=== PATIENT | male | born 1930 | race Caucasian/White ===

== ENCOUNTER 2016-06-25 13:47 | Emergency (ER) | payer OTHER ==
[2016-06-25 14:13] VITALS: RESP 20; TEMP 96.9
[2016-06-25] MEDS ORDERED: MECLIZINE 25 MG CHEWABLE TABLET PO ONE (14:15)
[2016-06-25] MEDS ORDERED: Sodium Chloride 0.9% 1,000 ML PRIMARY IV ONE (14:15)
[2016-06-25] MEDS ORDERED: NORMAL SALINE 10 ML SYRINGE FLUSH IVP PRN (14:15)
--- NOTE | 2016-06-25 14:22 | EKG ---
[address] [address] Measurements Intervals [place] Rate: 84 P: 55 TX: 202 QRS: -71 QRSD: 155 T: 46 QT: 422 QTc: 462 Interpretive Statements SINUS RHYTHM RIGHT BUNDLE BRANCH BLOCK LEFT ANTERIOR FASICULAR BLOCK Compared to ECG 03/02/2013 07:43:58 No significant changes Electronically Signed On 06-25-16 15:35:55 MST by Virgil Pennington [id number]
[2016-06-25 14:49] LABS: BILIRUBIN,TOTAL 1.6 mg/dL (0.3-1.2); BUN/CREATININE RATIO 11.42 (6-20); CALCIUM 9.4 mg/dL (8.7-10.7); CREATININE 0.7 mg/dL (0.70-1.50); POTASSIUM 4.4 meq/L (3.8-5.2); TOTAL PROTEIN 8.2 g/dL (6.1-8.0)
[2016-06-25 14:52] LABS: BASOPHILS # (AUTO) 0.01 10*3/UL; BASOPHILS % (AUTO) 0.2 % (0-1); EOSINOPHILS % (AUTO) 0.3 % (0-8); HEMOGLOBIN 14.1 g/dL (14.0-18.0); IMM GRAN % (AUTO) 0.5 % (0-5); IMM GRAN# (AUTO) 0.03 10*3/UL; LYMPHOCYTES # (AUTO) 1.37 10*3/uL; LYMPHOCYTES % (AUTO) 23.3 % (10-50); MEAN CORPUSCULAR HEMOGLOBIN 30.7 PG (27-31); MEAN CORPUSCULAR HGB CONC 33.6 g/dL (33-37); MEAN PLATELET VOLUME 11.4 FL (7.4-12.2); MONOCYTES # (AUTO) 0.86 10*3/UL (0.3-0.8); MONOCYTES % (AUTO) 14.6 % (5-15); NEUTROPHILS % (AUTO) 61.1 % (50-80); RDW COEFFICIENT OF VARIATION 15.2 % (11.5-14.5); RED BLOOD COUNT 4.59 10^6/uL (4.70-6.10); WHITE BLOOD COUNT 5.89 10^3/uL (4.8-10.8)
[2016-06-25 15:06] LABS: PLATELET MORPHOLOGY COMMENT NORMAL MORPHOLOGY (NORM)
--- NOTE | 2016-06-25 15:23 | DI ---
History: Patient fell. 2 view left shoulder. Findings: There is no evidence of dislocation. The scapula appears intact. Ribs appear intact. The ac romioclavicular junction shows mild degenerative change. There is advanced narrowing of the left edison ral head at the glenohumeral junction with bone on bone phenomena and some osteophyte formation noted both along the glenoid process and the humeral margin. Impression: MIld degenerative change at the left acromioclavicular junction. Advanced degenerative change at the glenohumeral junction No fracture or dislocation observed
--- NOTE | 2016-06-25 15:41 | DI ---
History: Patient fell. Evaluate for intracranial process. Procedure: Highly collimated axial images the brain were obtained from skull base to vertex. Findings: Moderately advanced atrophy, age-appropriate observed. No intra-nor extra-axial fluid or bl ood collections are identified orbits are unremarkable. There is no evidence of fracture. No shift of midline structures. Calvaria is intact. Orbits and finding collimated images are unremarkable. No evidence of mass or hem orrhage. Impression: Moderate age-appropriate atrophy. No evidence of acute hemorrhage or focal abnormality id entified
--- NOTE | 2016-06-25 15:51 | PDOC ---
Dizziness HPI - General Chief Complaint: Neurological Complaints Stated Complaint: dizziness Date Seen by Provider: 06/25/16 Time Seen by Provider: 15:45 Source: POSITIVE: Patient, Other (Daughter) Exam Limitations: POSITIVE: No limitations Nurse's Notes Reviewed & Considered: Yes - History of Present Illness Initial Comments: The patient is an 86-year-old male, who is brought to the emergency room by his daughter. Patient states that for the past 24 hours, approximately, he has had "dizziness". He states his dizziness is worse when he sits up or lies down. He apparently stumbled and fell yesterday and sustained a contusion to the posterior aspect of his left shoulder. His daughter lives nearby and checks on the patient frequently. The patient lives alone. Patient denies any chest pain. No headaches. No focal sensory or motor symptoms. No visual changes or changes in auditory acuity. Patient is hard of hearing and wears hearing aids. He denies recent head trauma. History of hypertension. His daughter states that she is concerned that the patient might not be taking his medications as directed and that he might be confusing the times at which he should be taking them. Body Location Affected: REPORTS: Other (Dizziness as above) Timing: REPORTS: Abrupt, Improved Duration: <24 hours (Approximately 24 hours) Severity: Moderate Persistent/Worse since (date): 06/24/16 Persistent/Worse since (time): 14:00 Context: REPORTS: Rest Quality: REPORTS: Other (Patient denies any pain anywhere) Associated Symptoms: REPORTS: Movement Sense - Vague, With Position Change. DENIES: Hearing Loss, Ringing in Ear(s), Roaring in Ear(s), Ear Pain, Nausea, Vomiting, Sense of Spinning, Sense of Falling, Movement Sense - Distinct, Headache, Weakness, Numbness, Diaphoresis, Light Headedness, Fainting, Near Fainting, While Sitting, While Standing, While Supine, Sense of Confusion, Other Current Ability to Walk/Stand: REPORTS: Walks w/o Assistance (But gait chronically unsteady) Usual Ability to Walk/Stand: REPORTS: Walks w/o Assistance (But gait chronically unsteady) Aggrevated by: REPORTS: Nothing Similar Symptoms Previously: No Recently seen/treated/hospitalized: No Any Prior Injuries Related to Current Complaint?: No - Patient Home Medications Home Medications: Home Medications Aspirin 81 mg PO DAILY #30 05/03/10 Multivitamins W-Minerals/Lut [Centrum Silver Tablet] 1 each PO DAILY #30 Levothyroxine Sodium 1 tab ORAL QD #90 tab 08/01/15 Amlodipine Besylate 1 tab PO QD #90 tab 08/22/15 Lisinopril 20 mg PO BID #180 tab 08/22/15 Potassium Chloride 1 tab PO QD #90 tab 08/22/15 Pravastatin Sodium [Pravachol Tab] 1 tab PO QHS #90 tab 08/22/15 Tolterodine Tartrate [Detrol] 1 mg PO BID #180 tab 08/22/15 Hydrocodone/Acetaminophen [Hydrocodon-Acetaminophen 5-325] 1 each PO BID #60 tab 06/15/16 - Patient Allergies Allergies/Adverse Reactions: Allergies Allergy/AdvReac Type Severity Reaction Status Date / Time No Known Allergies Allergy Verified 06/25/16 14:02 Past Medical History - heen HEENT History: Hard of Hearing Additional HEENT History: hearing aid right ear Cardiovascular History: Hypertension, Hyperlipidemia Respiratory History: Denies History Gastrointestinal History: Denies History Genitourinary History: Denies History Endocrine History: Hypothyroidism Musculoskeletal History: Back Pain Additional Musculoskeletal History: lumbar spine surgery Neurological History: Denies History Blood Disorders: Denies History Psychiatric History: Denies History Male Reproductive History: Denies History Cancer History: Denies History In Past Year Been Physically Harmed or Verbally Threatened: No History of MDRO: Unknown Tobacco Use: Never Smoker Alcohol Use: None Substance Use Type: None Previous Surgical History: Yes Type / Date of Surgery: back Significant Family History: No pertinent family hx Past Medical History Reviewed: Reviewed - No Changes ROS - Limitations ROS Limitations: No Limitations Constitution: REPORTS: Denies Symptoms Cardiovascular: REPORTS: Denies Cardiac Symptoms Respiratory: REPORTS: Denies Resp Symptoms Neurological: REPORTS: Denies Neuro Symptoms Gastrointestinal: REPORTS: Denies GI Symptoms Endocrine: REPORTS: Denies Symptoms Musculoskeletal: REPORTS: Denies MS Symptoms Genitourinary: REPORTS: Denies Symptoms Eyes: REPORTS: Denies Symptoms ENT: REPORTS: Denies Symptoms Skin: REPORTS: Denies Skin Symptoms Lympathic: REPORTS: Denies Lympathic Symptoms Immunologic: POSITIVE: Denies Symptoms Psychiatric: POSITIVE: Denies Psych Symptoms Dizziness PE - General Appearance General Appearance: POSITIVE: No Acute Distress, Alert - HEENT HEENT: POSITIVE: Head Inspection Nml, Eyes Inspection Nml, Ears Inspection Nml, Nose Inspection Nml, Oral/Dental Inspect. Nml, Pharynx Inspect. Nml, PERRL, EOMI , Other (No abnormal nystagmus) - Pupil Size Pupil Size: 4 mm: Bilateral (PERRLA) - Neck Neck: POSITIVE: Supple - Respiratory Respiratory: POSITIVE: No Respiratory Distress, Breath Sounds Normal - Cardiovascular Cardiovascular: POSITIVE: Regular Rate & Rhythm, No Murmur, No Gallop, Heart Sounds Normal Peripheral Pulses: Radial (R): 2+, Radial (L): 2+ - Abdomen Abdomen: Soft: (All Quadrants), Normal Bowel Sounds: (All Quadrants), Denies Tenderness: (All Quadrants), No Splenomegaly: (All Quadrants), No Hepatomegaly: (All Quadrants), No Guarding: (All Quadrants), No Rebound: (All Quadrants), No Palpable Pulse: (All Quadrants), No Palpabale Mass: (All Quadrants), No Distention: (All Quadrants), No Rigidity: (All Quadrants) - Skin Skin: POSITIVE: Intact, Normal For Race, Warm, Dry, No Rash - Extremities Extremity: Non-Tender: (All Extremities), Normal ROM: (All Extremities), Normal Inspection: (All Extremities) - Neuro/Psych Neuro/Psych: POSITIVE: Alert, Affect Appropriate, Mood Appropriate, Normal Speech, Normal Cognition Cranial Nerves: POSITIVE: Normal As Tested, No Evidence of Acute CVA Cerebellar: POSITIVE: Normal As Tested Sensorimotor: POSITIVE: No Motor Deficits, No Sensory Deficits, Reflexes Normal Reflexes: Patellar (L): 2+, Radial (R): 2+ Dizziness Progress - Results Reviewed by me Xrays/CTs/US Reviewed by me: Yes Discussed with Radiologist: Yes Radiology Findings: CT scan abdomen and pelvis without contrast normal except for some age-related loss of volume. X-ray left shoulder normal except for some degenerative changes. Lab Results Reviewed: Yes Lab Results:: Laboratory Results 06/25/16 Range/Units 14:30 WBC 5.89 (4.8-10.8) 10^3/uL RBC 4.59 L (4.70-6.10) 10^6/uL Hgb 14.1 (14.0-18.0) g/dL Hct 42.0 (42.0-52.0) % MCV 91.5 H (80-90) FL MCH 30.7 (27-31) PG MCHC 33.6 (33-37) g/dL RDW Std Deviation 49.3 (39-50) fL RDW Coeff of Bonny 15.2 H (11.5-14.5) % Plt Count 166 (140-350) 10*3/uL MPV 11.4 (7.4-12.2) FL Immature Gran % (Auto) 0.5 (0-5) % Neut % (Auto) 61.1 (50-80) % Lymph % (Auto) 23.3 (10-50) % [place] % (Auto) 14.6 (5-15) % Eos % (Auto) 0.3 (0-8) % Baso % (Auto) 0.2 (0-1) % Immature Gran # (Auto) 0.03 10*3/UL Neut # (Auto) 3.60 10*3/UL Lymph # (Auto) 1.37 10*3/uL [place] # (Auto) 0.86 H (0.3-0.8) 10*3/UL Eos # (Auto) 0.02 10*3/UL Baso # (Auto) 0.01 10*3/UL WBC Morphology Comment Normal morphology (NORM) Plt Morphology Comment Normal morphology (NORM) RBC Morph Comment Normal morphology (NORM) Sodium 138 (135-145) meq/L Potassium 4.4 (3.8-5.2) meq/L Chloride 101 (98-112) meq/L Carbon Dioxide 23 (23-33) meq/L Anion Gap 14 (5-20) BUN 8 (7-22) mg/dL Creatinine 0.7 (0.70-1.50) mg/dL Estimated GFR (>60 ml/min/1.73m(2)) BUN/Creatinine Ratio 11.42 (6-20) Glucose 89 (78-110) mg/dL Calculated Osmolality 282.0 (267-292) mOsm/kg Calcium 9.4 (8.7-10.7) mg/dL Total Bilirubin 1.6 H (0.3-1.2) mg/dL AST 32 (21-57) IU/L ALT 36 (21-72) IU/L Alkaline Phosphatase 60 (38-126) IU/L Total Protein 8.2 H (6.1-8.0) g/dL Albumin 4.9 H (3.5-4.8) g/dL Globulin 3.3 (2.50-4.10) g/dL Albumin/Globulin Ratio 1.40 (1.3-2.0) mg/g EKG Interpreted/Reviewed By Me:: Yes (normal sinus rhythm; right bundle-branch block with left anterior fascicula) EKG Interpretation:: POSITIVE: Normal Sinus Rhythm, Normal Rate, Normal ST/T, Abnormal EKG. NEGATIVE: Normal Intervals (Right bundle-branch block with left anterior fascicular block), Normal [place], Normal QRS (Right bundle-branch block with left anterior fascicular block) - Patient's Progress Pain Medication Addressed: POSITIVE: Not Applicable School/Work Release Addressed: POSITIVE: Not Applicable Re-Examine Time:: 15:40 Re-Examine Comment: Patient states he feels much better on discharge. Patient discharged home. Daughter will stay with him for the next few days. Recommended that daughter administer patient's medications. Status: POSITIVE: Improved, Re-Examined - Consult Counseled: POSITIVE: Patient, Family, RE: Lab Results, RE: Radiology Results, RE : DX, RE: Need for F/U Patient Care Time - Estimated PCT Patient Care Time (In Minutes): 50 Vital Signs - Recent Vital Signs Vital Signs: Vital Signs (Last 8 hours) Temp Pulse Pulse Pulse Pulse Resp BP 06/25/16 14:15 85 100 102 H 06/25/16 13:49 96.9 F 83 20 171/102 BP BP BP Pulse Ox 06/25/16 14:15 171/102 171/106 180/98 06/25/16 13:49 99 - VS Reviewed Vital Signs Reviewed: Yes Discharge Clinical Impression: Dizziness Discharge Disposition: Discharged to Home Condition: Stable Patient Instructions Given at Discharge: Dizziness (ED) Additional Instructions: Your blood tests are all normal. CAT scan of your head shows age-related changes but no evidence of stroke or bleeding. Electrocardiogram shows a regular rhythm. Dizziness can be caused by many things; your description of a sensation of movement when you change position is compatible with vertigo, which I believe in your case is a benign condition. This normally resolves after a short period of time. Your daughter will he staying with you for the next few days. I recommend that your daughter administers your medication so that you do not confuse the timing or dosage of your medicines. Follow-up with your primary care provider. Return here anytime if condition worsens in any way. Follow Up With: MOO HERNANDEZ [Primary Care Provider] - (Instructions as above. Return here anytime if condition worsens. Follow-up with your primary care provider.)
== END 2016-06-25 15:54 | disposition home or self-care (01) ==
LOC: ER 13:47
DX: R42 Dizziness and giddiness (principal); S40.012A Contusion of left shoulder, initial encounter; W18.39XA Other fall on same level, initial encounter
CPT/HCPCS: 70450; 73030; 80053; 85025; 93005; 93010; 99284; J7030

== ENCOUNTER → 2016-12-13 | Outpatient (CLI) | payer OTHER ==
[2016-12-13 10:55] LABS: BASOPHILS # (AUTO) 0.02 10*3/UL; BASOPHILS % (AUTO) 0.4 % (0-1); EOSINOPHILS # (AUTO) 0.04 10*3/UL; EOSINOPHILS % (AUTO) 0.7 % (0-8); HEMATOCRIT 40.9 % (42.0-52.0); LYMPHOCYTES # (AUTO) 1.53 10*3/uL; MEAN CORPUSCULAR HEMOGLOBIN 31.7 PG (27-31); MEAN CORPUSCULAR HGB CONC 34.2 g/dL (33-37); MEAN CORPUSCULAR VOLUME 92.5 FL (80-90); MEAN PLATELET VOLUME 11.6 FL (7.4-12.2); MONOCYTES # (AUTO) 0.93 10*3/UL (0.3-0.8); MONOCYTES % (AUTO) 17.1 % (5-15); NEUTROPHILS # (AUTO) 2.85 10*3/UL; NEUTROPHILS % (AUTO) 52.4 % (50-80); RED BLOOD COUNT 4.42 10^6/uL (4.70-6.10)
[2016-12-13 11:04] LABS: PLATELET MORPHOLOGY COMMENT NORMAL MORPHOLOGY (NORM); RBC MORPHOLOGY COMMENT NORMAL MORPHOLOGY (NORM); WBC MORPHOLOGY COMMENT NORMAL MORPHOLOGY (NORM)
[2016-12-13 11:17] LABS: BUN/CREATININE RATIO 15.55 (6-20); CALCIUM 9.5 mg/dL (8.7-10.7); CHOL/HDL RATIO 3.66 RATIO (0-4.0); HEMOGLOBIN A1C 4.88 % (4.2-6.0); LDL CHOLESTEROL,CALCULATED 45.6 mg/dL
== END ==
LOC: MOB LAB 09:24
PROVIDERS: ATTEND Family Medicine
DX: I10 Essential (primary) hypertension (principal); E03.9 Hypothyroidism, unspecified; E78.4 Other hyperlipidemia; F17.200 Nicotine dependence, unspecified, uncomplicated; Z79.899 Other long term (current) drug therapy
CPT/HCPCS: 36415; 80053; 80061; 83036; 84443; 85025; 99213

== ENCOUNTER 2018-10-17 08:38 | Observation (INO) ==
--- NOTE | 2018-10-17 08:55 | PDOC ---
Lower Extremity Problem HPI - General Chief Complaint: Lower Extremity Problem/Injury Stated Complaint: WEAKNESS Date Seen by Provider: 10/17/18 Time Seen by Provider: 08:45 Source: POSITIVE: Patient Exam Limitations: POSITIVE: Physical impairment (Patient is extremely hard of hearing) Nurse's Notes Reviewed & Considered: Yes - History of Present Illness Initial Comments: This is a well-developed, well-nourished, hard of hearing, 88-year-old male, who comes in because bilateral lower extremity weakness. Patient awoke this morning with weakness stating he was unable to move his legs. At this time he denies any headache, no sore throat, no chest pain, she he does have shortness of breath, denies any nausea or vomiting, he has chronic diarrhea, denies any hematuria or dysuria, no myalgias, no fever chills or sweats. Patient states he was normal when he went to bed last night when he awoke this morning he was having bilateral leg weakness. He denies any lateralizing signs. Body Location Affected: REPORTS: Lower Extremity (L), Lower Extremity (R) Timing: REPORTS: Unknown Duration: Unknown Severity: Moderate Recent Injury: REPORTS: No Context of Injury: DENIES: Fall, Twist, Direct Blow, Incision, Burn, Crush, Stab, Prolonged Pressure on Ext, Other Location at Time of Onset: REPORTS: Home Quality: DENIES: Aching, Burning, Cramping, Dullness, Fullness, "Pain", Sharpness, Stabbing, Throbbing, Tenderness, Itching, Pressure, Other Modifying Factors: REPORTS: Nothing Exacerbates Associated Symptoms: REPORTS: Shortness of Breath Recent Care Received: REPORTS: Denies Any Prior Injuries Related to Current Complaint?: No - Patient Home Medications Home Medications: Home Medications Aspirin 81 mg PO DAILY #30 05/03/10 pravastatin 40 mg tablet 40 mg PO QHS #30 tab 12/27/17 lisinopril 20 mg tablet 20 mg PO BID #180 tab 01/13/18 tolterodine 1 mg tablet 1 mg PO BID #60 tab 07/07/18 hydrocodone 5 mg-acetaminophen 325 mg tablet 1 tab PO BID PRN #60 tab 08/08/18 levothyroxine 125 mcg tablet 125 mcg PO QD #90 tab 09/17/18 amlodipine 5 mg tablet 5 mg PO QD #90 tab 10/14/18 potassium chloride ER 8 mEq tablet,extended release 8 meq PO QD #90 tab 10/14/18 - Patient Allergies Allergies/Adverse Reactions: Allergies Allergy/AdvReac Type Severity Reaction Status Date / Time No Known Allergies Allergy Verified 10/17/18 08:46 Past Medical History - heen HEENT History: Hard of Hearing Additional HEENT History: hearing aid right ear Cardiovascular History: Hypertension, Hyperlipidemia Respiratory History: Denies History Gastrointestinal History: Denies History Genitourinary History: Denies History Endocrine History: Hypothyroidism Musculoskeletal History: Back Pain Additional Musculoskeletal History: lumbar spine surgery Neurological History: Denies History Blood Disorders: Denies History Psychiatric History: Denies History Cancer History: Denies History History of MDRO: Unknown Alcohol Use: None In the Past 12 Months, Have Used or Abuse Any Substance: None Previous Surgical History: Yes Type / Date of Surgery: back Significant Family History: No pertinent family hx ROS - Limitations ROS Limitations: Physical Impairment (Patient is extremely hard of hearing) Constitution: REPORTS: Denies Symptoms Cardiovascular: REPORTS: Denies Cardiac Symptoms Respiratory: REPORTS: Shortness Of Breath Neurological: REPORTS: Weakness (Bilateral lower extremities) Gastrointestinal: REPORTS: Denies GI Symptoms Endocrine: REPORTS: Denies Symptoms Musculoskeletal: REPORTS: Denies MS Symptoms Genitourinary: REPORTS: Denies Symptoms Eyes: REPORTS: Denies Symptoms ENT: REPORTS: Denies Symptoms Skin: REPORTS: Denies Skin Symptoms Lympathic: REPORTS: Denies Lympathic Symptoms Immunologic: POSITIVE: Denies Symptoms Psychiatric: POSITIVE: Denies Psych Symptoms Lower Ext Problem Exam - General Appearance General Appearance: POSITIVE: Alert, Cooperative, No Acute Distress, No Evidence of Trauma - Extremities Lower Extremity: POSITIVE: Normal Inspection, Non-Tender, Swelling (+3 edema in his ankles and feet) Joint Exam: POSITIVE: Joints Normal, Unable to Bear Weight (Secondary to weakness) Vascular: POSITIVE: No Vascular Compromise, Full Pulses, Equal Pulses - Neuro / Psych Neuro/Psych: POSITIVE: Sensation Normal, Motor Normal, Oriented to Person, Oriented to Place, Oriented to Time, lab assistant Normal as Tested, Mood Appropriate, Affect Appropriate Reflexes: Patellar (R): 2+, Patellar (L): 2+, Radial (R): 3+, Radial (L): 3+ - Neck / Back / Pelvis Back / Neck: POSITIVE: Normal Inspection, Normal ROM Pelvis: Stable by compression - Skin Skin: POSITIVE: Normal Color, Warm, Dry, No Rash - HEENT HEENT: POSITIVE: Head Inspection Nml, Eyes Inspection Nml, Ears Inspection Nml, Nose Inspection Nml, Oral/Dental Inspect. Nml, Pharynx Inspect. Nml, PERRL, EOMI - Respiratory / CVS Respiratory / CVS: POSITIVE: No Respiratory Distress, Breath Sounds Normal, Regular Rate/Rhythm, Heart Sounds Normal Peripheral Pulses: Radial (L): 4+, Dorsalis-pedis (R): 4+, Dorsalis-pedis (L): 4+ - Abdomen Abdomen: Soft: (All Quadrants), Normal Bowel Sounds: (All Quadrants), Denies Tenderness: (All Quadrants), No Splenomegaly: (All Quadrants), No Hepatomegaly: (All Quadrants), No Guarding: (All Quadrants), No Rebound: (All Quadrants), No Palpable Pulse: (All Quadrants), No Palpabale Mass: (All Quadrants), No Distention: (All Quadrants), No Rigidity: (All Quadrants) Lower Ext Problem Progress - Results Reviewed by me Xrays/CTs/US Reviewed by me: Yes Discussed with Radiologist: Yes Lab Results Reviewed by Me: Yes CBC and BMP: 10/17/18 09:35 10/17/18 09:35 EKG Interpreted/Reviewed By Me:: Yes (sinus rhythm, 94 bpm, first-degree block.) EKG Interpretation:: POSITIVE: Normal Sinus Rhythm - Patient's Progress Pain Medication Addressed: POSITIVE: Not Applicable Re-Examine Time: 12:15 Status: POSITIVE: Improved MDM / ED Course: Patient was evaluated, an IV started, blood drawn and sent to the lab for studies, CT examination of his head as well as chest x-ray and EKG were obtained. Findings: EKG, per my interpretation, shows first-degree block with a rate of 94 beats a minute and no ST elevation. Chest x-ray shows left lower base atelectasis with no consolidations present. CT scan of his head shows no acute intracranial abnormalities. CBC shows white count platelets are normal with a hemoglobin of 13.8 and hematocrit of 40.2. Coag studies show PT of 13.1 and INR normal at 1.14. D-dimer is normal at 119. CMP shows a CO2 of 17, total bilirubin of 1.3, total protein of 8.1, albumin of 5.2, the remainder the panel is normal. TSH is normal at 0.946. Urinalysis is negative. Urine drug screen is positive for opiates, negative for all other substances tested. Blood alcohol is negative. Assessment: #1 anemia. #2 weakness bilateral lower extremities. Plan: Patient is being admitted by the hospitalist. We attempted to ambulate the patient here in the emergency room and required 3 people to help him stand erect. - Consult Consult (If Yes, Name of Consulting MD & Time Called): Yes (Dr. Vance 1217 hrs.) Consulting MD will see pt:: POSITIVE: [facility] Admit Counseled: POSITIVE: Patient, RE: Lab Results, RE: Radiology Results, RE: DX, RE: Need for F/U Patient Care Time - Estimated PCT Patient Care Time (In Minutes): 45 Vital Signs - VS Reviewed Vital Signs Reviewed: Yes Discharge Clinical Impression: Lower extremity weakness, Anemia Discharge Disposition: Admit to Inpatient Condition: Stable Date Decision to Admit to Inpatient: 10/17/18 Time Decision to Admit to Inpatient: 12:17
[2018-10-17] MEDS ORDERED: Sodium Chloride 0.9% 1,000 ML PRIMARY IV ONE (09:00)
--- NOTE | 2018-10-17 09:24 | EKG ---
[address] [place] [address] Measurements Intervals [place] Rate: 94 P: 41 IN: 210 QRS: -80 QRSD: 161 T: 35 QT: 390 QTc: 442 Interpretive Statements SINUS RHYTHM WITH FIRST DEGREE AV BLOCK RIGHT BUNDLE BRANCH BLOCK LEFT ANTERIOR FASCICULAR BLOCK POSSIBLE SEPTAL MYOCARDIAL INFARCTION Compared to ECG 06/25/2016 14:22:12 First degree AV block now prese Electronically Signed On 10-18-18 10:13:20 MDT by Virgil Pennington [id number]
[2018-10-17 09:36] LABS: BASOPHILS # (AUTO) 0.01 10*3/UL; BASOPHILS % (AUTO) 0.2 % (0-1); EOSINOPHILS # (AUTO) 0.01 10*3/UL; EOSINOPHILS % (AUTO) 0.2 % (0-8); Hematocrit [HCT] 40.2 % (42.0-52.0); Hemoglobin [HGB] 13.8 g/dL (14.0-18.0); LYMPHOCYTES # (AUTO) 0.82 10*3/uL; MEAN CORPUSCULAR HEMOGLOBIN 31.2 PG (27-31); MEAN CORPUSCULAR HGB CONC 34.3 g/dL (33-37); MONOCYTES # (AUTO) 0.77 10*3/UL (0.3-0.8); MONOCYTES % (AUTO) 12.6 % (5-15); NEUTROPHILS # (AUTO) 4.42 10*3/UL; NEUTROPHILS % (AUTO) 72.5 % (50-80); RED BLOOD COUNT 4.42 10^6/uL (4.70-6.10)
[2018-10-17 09:51] LABS: BLOOD UREA NITROGEN 17 mg/dL (7-22); BUN/CREATININE RATIO 21.25 (6-20); SERUM ALBUMIN 5.2 g/dL (3.5-4.8)
[2018-10-17 10:12] LABS: PLATELET MORPHOLOGY COMMENT NORMAL MORPHOLOGY (NORM); RBC MORPHOLOGY COMMENT NORMAL MORPHOLOGY (NORM); WBC MORPHOLOGY COMMENT NORMAL MORPHOLOGY (NORM)
--- NOTE | 2018-10-17 10:12 | DI ---
CT Head WO Contrast,10/17/2018 9:00 AM: Clinical History: Weakness Previous Exam: June 25, 2016 Findings: Multiple helically acquired CT images are obtained through the brain without contrast, and demonstrat e mild diffuse age-related volume loss. There is no mass, hemorrhage or midline shift. The paranasal sinuses are unremarkable. The intraorbital structures are also unremarkable. Impression: Diffuse age-related volume loss without acute intracranial pathology.
--- NOTE | 2018-10-17 10:17 | DI ---
XR CXR 1VW,10/17/2018 9:00 AM: Clinical History: Shortness of breath Previous Exam: None at this facility. Findings: A single frontal radiograph of the chest is obtained, and demonstrate subsegmental atelectasis in the lung base on the left. Degenerative changes are seen of the glenohumeral joints and the acromioclavicular joints. There is n o effusion. Impression: Subsegmental atelectasis in the left lung base.
[2018-10-17 11:37] LABS: BILIRUBIN,URINE NEGATIVE (NEG); CLARITY,URINE CLEAR (CLEAR); COLOR,URINE YELLOW (Y); GLUCOSE, URINE (UA) NEGATIVE (NEG); OCCULT BLOOD,URINE NEGATIVE (NEG); PROTEIN,URINE NEGATIVE (NEG); UROBILINOGEN,URINE 0.2 EU/dL (0.2)
[2018-10-17 11:38] LABS: URINE SAMPLE TYPE CLEAN CATCH URINE
[2018-10-17 11:39] LABS: URINE SPECIFIC GRAVITY - MAN 1.015
[2018-10-17 11:45] LABS: AMPHETAMINE SCREEN NEGATIVE (NEG); CANNABINOID SCREEN,URINE NEGATIVE (NEG); COCAINE SCREEN NEGATIVE (NEG); METHADONE URINE SCREEN NEGATIVE (NEG); METHAMPHETAMINES SCREEN,URINE NEGATIVE (NEG); OPIATE SCREEN,URINE POSITIVE (NEG)
--- NOTE | 2018-10-17 12:34 | PDOC ---
HPI - History of Present Illness History of Present Illness: This very nice 88-year-old gentleman brought to the ER for lower extremity weakness he was rehydrated in the ER labs are unremarkable but when they tried to walk and ambulate took about 3 people to have him walk he does use a walker. Past Medical History Medical History: Hypertension, hypothyroidism Tobacco Use: Unknown If Ever Smoked Do you dip or chew tobacco: Yes In the Past 12 Months, Have Used or Abuse Any of the Following Substance: None Medication / Allergies Home Medications: Home Medications Medication Instructions Recorded Confirmed Aspirin 81 mg PO DAILY #30 05/03/10 10/17/18 pravastatin 40 mg tablet 40 mg PO QHS #30 tab 12/27/17 10/17/18 lisinopril 20 mg tablet 20 mg PO BID #180 tab 01/13/18 10/17/18 tolterodine 1 mg tablet 1 mg PO BID #60 tab 07/07/18 10/17/18 hydrocodone 5 mg-acetaminophen 325 1 tab PO BID PRN #60 tab 08/08/18 10/17/18 mg tablet levothyroxine 125 mcg tablet 125 mcg PO QD #90 tab 09/17/18 10/17/18 amlodipine 5 mg tablet 5 mg PO QD #90 tab 10/14/18 10/17/18 potassium chloride ER 8 mEq 8 meq PO QD #90 tab 10/14/18 10/17/18 tablet,extended release Allergies/Adverse Reactions: Allergies Allergy/AdvReac Type Severity Reaction Status Date / Time No Known Allergies Allergy Verified 10/17/18 08:46 Review of Systems - Review of Systems All Systems: Reviewed & No Additional Complaints Except as Stated - Respiratory Respiratory: DENIES: Negative System Review, Cough, Sputum, Dyspnea At Rest, Dyspnea with Exertion, Pleuritic Pain, Hemoptysis, Wheezing, Other, See HPI - Cardiovascular Cardiovascular: DENIES: Negative System Review, Chest Pain, Edema, Syncope, Palpitations, Orthopnea, Paroxysmal Nocturnal Dyspnea, Other, See HPI - Gastrointestinal Gastrointestinal / Abdominal: DENIES: Negative System Review, Nausea, Vomiting, Diarrhea, Constipation, Abdominal Pain, Bloody Stool, Poor Appetite, Heartburn, Regurgitation, Bloating, Lactose Intolerance, Melena, Bright Red Blood per Rectum, Other, See HPI - Musculoskeletal Musculoskeletal: REPORTS: Other (Generalized weakness lower extremities) Exam - Vitals Vital Signs: Vital Signs Temperature 97.8 F Temperature Source Temporal Artery Scan Pulse Rate [Pulse Oximeter 94 Right] Respiratory Rate 16 Blood Pressure [Left Arm] 115/62 Pulse Ox 94 Oxygen Delivery Method Room Air Height 5 ft 5 in Weight 175 lb - General General Appearance: No Acute Distress, Cooperative - Eye Eye Exam: POSITIVE: Normal Appearance, PERRL, EOMI, No Scleral Icterus - Neck Neck Exam: Normal Inspection, Full ROM, No Tenderness, No Lymphadenopathy, No Thyromegaly, JVP is not Raised - Respiratory Respiratory Exam: POSITIVE: Clear to Auscultation - Bilaterally, Breathing Non Labored, Normal To Percussion, Normal to Percussion and Palpation - Cardiovascular Cardiovascular Exam: POSITIVE: RRR, No Murmur, No Clicks, No Gallops, No Rubs, PMI Non-Displaced - GI/Abdominal GI/Abdominal Exam: POSITIVE: Normal Bowel Sounds, Non Tender, Non Distended, Soft, No Masses, No Hepatomegaly, No Splenomegaly, No Organomegaly - Extremities Extremities Exam: POSITIVE: Normal Inspection, Full ROM, No Clubbing Present, No Edema Present, No Cyanosis Present Additional Extremities Exam Details: Left lower extremity weakness little bit more than the right side - Neurological Neurological Exam: POSITIVE: Alert, Oriented x 3, No Facial Droop, Speech Intact / Clear Results - Labs CBC and BMP: 10/17/18 09:35 10/17/18 09:35 Assessment and Plan - Patient Problems (1) Dehydration Current Visit: Yes Status: Acute Comment: IV fluids and 75 an hour Code(s): E86.0 - Dehydration (2) Lower extremity weakness Current Visit: Yes Status: Acute Comment: Nothing on CT scan I will order an MRI Code(s): R29.898 - Other symptoms and signs involving the musculoskeletal system (3) BPH (benign prostatic hyperplasia) Current Visit: No Status: Acute Onset Date: 10/19/11 Code(s): N40.0 - Benign prostatic hyperplasia without lower urinary tract symptoms (4) HTN (hypertension) Current Visit: No Status: Acute Onset Date: 10/19/11 Code(s): I10 - Essential (primary) hypertension
[2018-10-17] MEDS ORDERED: DOCUSATE 100 MG CAPSULE PO PRN (12:49)
[2018-10-17] MEDS ORDERED: LIDOCAINE W/ SODIUM BICARB 0.5 ML SYR SUBD PRN (12:49)
[2018-10-17] MEDS ORDERED: CALCIUM CARBONATE 500 MG (TUMS) CHEWABLE TABLET PO PRN (12:49)
[2018-10-17] MEDS ORDERED: ONDANSETRON 4 MG/2 ML VIAL IVP PRN (12:49)
[2018-10-17] MEDS ORDERED: ACETAMINOPHEN 325 MG TABLET PO PRN (12:49)
[2018-10-17] MEDS ORDERED: TOLTERODINE TARTRATE 1 MG PO SCH (12:49)
--- NOTE | 2018-10-17 15:42 | DI ---
MRI Brain WO Contrast,10/17/2018 12:49 PM: Clinical History: Weakness Previous Exam: None at this facility. Findings: Multiplanar MR images are obtained through the brain without contrast, and demonstrate diffuse age-re lated volume loss. There are multiple areas of increased FLAIR signal within the periventricular whit e matter. There is no abnormally restricted diffusion. There is fluid within the mastoid air cells bilaterally worse on the right than the left. The intraorbital structures are unremarkable. The paranasal sinuses are unremarkable. There is mild diffuse age-related volume loss. The cerebellopontine angles are unremarkable. The corpus callosum is unremarkable. The sella and parasellar region is unremarkable. There is no evidence of Chiari malformation. Diffuse degenerative changes of the upper cervical spine are seen. Impression: Diffuse age-related volume loss. No evidence of acute ischemia. Fluid within the mastoid air cells. Correlate clinically.
[2018-10-17] MEDS: LISINOPRIL 20 MG TABLET PO SCH ×2 (15:59→20:55)
[2018-10-17] MEDS: AmLODIPine Tab 5 MG TABLET PO SCH (15:59)
[2018-10-17] MEDS: Lactated Ringers 1,000 ML PRIMARY IV SCH (16:25)
[2018-10-17] MEDS: ASPIRIN EC 81 MG TABLET PO SCH (16:26)
[2018-10-17] MEDS ORDERED: Pravastatin Tab 40 MG TAB PO SCH (21:00)
[2018-10-18] MEDS: LEVOTHYROXINE 125 MCG TABLET PO SCH (04:41)
[2018-10-18] MEDS: Lactated Ringers 1,000 ML PRIMARY IV SCH (04:45)
[2018-10-18 05:45] LABS: BASOPHILS # (AUTO) 0.01 10*3/UL; BASOPHILS % (AUTO) 0.2 % (0-1); EOSINOPHILS # (AUTO) 0.02 10*3/UL; EOSINOPHILS % (AUTO) 0.4 % (0-8); Hematocrit [HCT] 36.5 % (42.0-52.0); Hemoglobin [HGB] 12.4 g/dL (14.0-18.0); LYMPHOCYTES # (AUTO) 1.31 10*3/uL; MEAN CORPUSCULAR HEMOGLOBIN 30.8 PG (27-31); MEAN CORPUSCULAR VOLUME 90.6 FL (80-90); MEAN PLATELET VOLUME 11.2 FL (7.4-12.2); MONOCYTES % (AUTO) 14.2 % (5-15); NEUTROPHILS # (AUTO) 3.43 10*3/UL; NEUTROPHILS % (AUTO) 60.8 % (50-80); RED BLOOD COUNT 4.03 10^6/uL (4.70-6.10)
[2018-10-18 06:03] LABS: BLOOD UREA NITROGEN 10 mg/dL (7-22); SERUM ALBUMIN 4.3 g/dL (3.5-4.8)
[2018-10-18 06:14] LABS: PLATELET MORPHOLOGY COMMENT NORMAL MORPHOLOGY (NORM); RBC MORPHOLOGY COMMENT NORMAL MORPHOLOGY (NORM); WBC MORPHOLOGY COMMENT NORMAL MORPHOLOGY (NORM)
[2018-10-18] MEDS: AmLODIPine Tab 5 MG TABLET PO SCH (09:27)
[2018-10-18] MEDS: LISINOPRIL 20 MG TABLET PO SCH ×2 (09:27→20:05)
[2018-10-18] MEDS: Tolterodine LA Cap 4 MG CAP PO SCH (09:27)
[2018-10-18] MEDS: ASPIRIN EC 81 MG TABLET PO SCH (09:27)
--- NOTE | 2018-10-18 11:53 | OT.PROG ---
Progress Note Progress Note: S: pt stated that he was doing okay and agreed to therapy. O: tx consisted of bed mobility from supine to EOB with MIN A, STS x5, functional ambulation with walker x10'. A: pt tolerated session well. pt needs verbal cues to bed positioning today. P: continue POC
--- NOTE | 2018-10-18 16:18 | PDOC(PROG) ---
Date of Service: 10/18/18 Time of Service: 16:13 Interval History: patient seen, evaluated earlier today. no chest pain, SOB, N/V. was eating cream o wheat for breakfast. D/W RN who stated patient needed max assist to sit upright. patient suffers from dementia, but stated to me that he has leg weakness and he feels like they "give out" on him. I reviewed lumbar MRI from 2010--severe spinal stenosis and disk bulges. Objective : Data - Labs CBC and BMP: 10/18/18 04:50 10/18/18 04:50 Objective : Exam - General General Appearance: No Acute Distress, Cooperative Additional General Exam Details: Vital Signs - Last Taken Temperature 97.9 F 10/18/18 13:00 Pulse Rate 102 H 10/18/18 13:00 Respiratory Rate 20 10/18/18 13:00 Blood Pressure 148/70 10/18/18 13:00 Pulse Ox 95 10/18/18 13:00 - Eye Eye Exam: No Scleral Icterus - ENT ENT Exam: Mucous Membranes Moist - Neck Neck Exam: JVP is not Raised - Respiratory Respiratory Exam: Clear to Auscultation - Bilaterally, Breathing Non Labored - Cardiovascular Cardiovascular Exam: RRR, No Murmur, No Clicks, No Gallops, No Rubs, No JVD - GI/Abdominal GI/Abdominal Exam: Normal Bowel Sounds, Non Tender, Non Distended, Soft - Extremities Extremities Exam: No Clubbing Present, No Edema Present, No Cyanosis Present - Back Back Exam: No CVA Tenderness Additional Back Exam Details: scar from prior back surgery noted. - Neurological Neurological Exam: Alert, No Facial Droop, Speech Intact / Clear, Moves All Extremities Equally Additional Neurological Exam Details: oriented to person, not to time or situation. Assessment and Plan - Patient Problems (1) Lower extremity weakness Current Visit: Yes Status: Acute Code(s): R29.898 - Other symptoms and signs involving the musculoskeletal system Qualifiers: Laterality: bilateral Qualified Code(s): R29.898 - Other symptoms and signs involving the musculoskeletal system (2) BPH (benign prostatic hyperplasia) Current Visit: No Status: Acute Onset Date: 10/19/11 Code(s): N40.0 - Benign prostatic hyperplasia without lower urinary tract symptoms (3) HTN (hypertension) Current Visit: No Status: Acute Onset Date: 10/19/11 Code(s): I10 - Essential (primary) hypertension Qualifiers: Hypertension type: unspecified Qualified Code(s): I10 - Essential (primary) hypertension (4) Dehydration Current Visit: Yes Status: Resolved Code(s): E86.0 - Dehydration (5) Dementia Current Visit: Yes Status: Acute Code(s): F03.90 - Unspecified dementia without behavioral disturbance Qualifiers: Dementia type: Alzheimer's disease Alzheimer's disease onset: late-onset Dementia behavioral disturbance: without behavioral disturbance Qualified Code(s): G30.1 - Alzheimer's disease with late onset; F02.80 - Dementia in other diseases classified elsewhere without behavioral disturbance - Assessment / Plan Additional Assessment/Plan Details: stop IV fluids I think the LE weakness is probably related to spinal stenosis, question disk bulges. can consider MRI, maybe back injection? very poor surgical candidate continue PT and OT eliminate narcotics if possible and simplify medications with dementia and current symptoms not safe to discharge home--very high risk to fall currently.
[2018-10-19] MEDS: LEVOTHYROXINE 125 MCG TABLET PO SCH (04:45)
[2018-10-19] MEDS: LISINOPRIL 20 MG TABLET PO SCH ×2 (08:54→20:17)
[2018-10-19] MEDS: Tolterodine LA Cap 4 MG CAP PO SCH (08:54)
[2018-10-19] MEDS: AmLODIPine Tab 5 MG TABLET PO SCH (08:54)
[2018-10-19] MEDS: ASPIRIN EC 81 MG TABLET PO SCH (08:54)
--- NOTE | 2018-10-19 10:45 | OT.PROG ---
Progress Note Progress Note: S: pt stated that he didnt like being forced to stay here. O: tx consisted of ADL task of toileting with x3 VCs to complete toilet hygiene. pt then completed functional transfer with walker and CGA for safety to sink were pt completed hand washing tasks with x2 VCs. pt transferred to chair with CGA for safety and use of walker. pt completed UE RTB exercises of biceps and chest pulls x10 each, LE clams x10, resisitive hamstring curls x10, seated marches and ankle pumps x10. A: pt tolerated session well. pt was unsteady on his feet during hand washing tasks. P: continua POC
--- NOTE | 2018-10-19 13:43 | PDOC(PROG) ---
Date of Service: 10/19/18 Time of Service: 13:38 Interval History: seen, evaluated earlier, discussed with RN no chest pain and no SOB no nausea or vomiting states his back is sore ambulating a bit better in room per RN. reportedly, patient's daughter hoping for half-way placement? Objective : Data - Labs CBC and BMP: 10/18/18 04:50 10/18/18 04:50 Objective : Exam - General General Appearance: No Acute Distress, Cooperative Additional General Exam Details: Vital Signs - Last Taken Temperature 97.5 F 10/19/18 10:56 Pulse Rate 84 10/19/18 10:56 Respiratory Rate 17 10/19/18 10:56 Blood Pressure 136/69 10/19/18 10:56 Pulse Ox 96 10/19/18 10:56 - ENT ENT Exam: Mucous Membranes Moist - Neck Neck Exam: JVP is not Raised - Respiratory Respiratory Exam: Clear to Auscultation - Bilaterally, Breathing Non Labored - Cardiovascular Cardiovascular Exam: RRR, No Murmur, No Clicks, No Gallops, No Rubs, No JVD - GI/Abdominal GI/Abdominal Exam: Normal Bowel Sounds, Non Tender, Non Distended, Soft - Extremities Extremities Exam: No Clubbing Present, No Edema Present, No Cyanosis Present - Neurological Neurological Exam: Alert, No Facial Droop, Speech Intact / Clear, Moves All Extremities Equally Additional Neurological Exam Details: alert to person, not to place, time or situation Assessment and Plan - Patient Problems (1) Lower extremity weakness Current Visit: Yes Status: Acute Code(s): R29.898 - Other symptoms and signs involving the musculoskeletal system Qualifiers: Laterality: bilateral Qualified Code(s): R29.898 - Other symptoms and signs involving the musculoskeletal system (2) BPH (benign prostatic hyperplasia) Current Visit: No Status: Acute Onset Date: 10/19/11 Code(s): N40.0 - Benign prostatic hyperplasia without lower urinary tract symptoms Qualifiers: Lower urinary tract symptom presence: unspecified whether lower urinary tract symptoms present Qualified Code(s): N40.0 - Benign prostatic hyperplasia without lower urinary tract symptoms (3) HTN (hypertension) Current Visit: No Status: Acute Onset Date: 10/19/11 Code(s): I10 - Essential (primary) hypertension Qualifiers: Hypertension type: unspecified Qualified Code(s): I10 - Essential (primary) hypertension (4) Dementia Current Visit: Yes Status: Acute Code(s): F03.90 - Unspecified dementia without behavioral disturbance Qualifiers: Dementia type: Alzheimer's disease Alzheimer's disease onset: late-onset Dementia behavioral disturbance: without behavioral disturbance Qualified Code(s): G30.1 - Alzheimer's disease with late onset; F02.80 - Dementia in other diseases classified elsewhere without behavioral disturbance - Assessment / Plan Additional Assessment/Plan Details: patient is quite demented and would not be safe to be at home without 24/7 care, at least in my opinion suspect spinal stenosis is causing leg weakness and ability to ambulate may likely deteriorate with time, not a surgical candidate with advanced dementia, age. will get case management involved. at this time, no safe discharge plan in place.
[2018-10-20] MEDS: LEVOTHYROXINE 125 MCG TABLET PO SCH (05:09)
[2018-10-20] MEDS: AmLODIPine Tab 5 MG TABLET PO SCH (08:37)
[2018-10-20] MEDS: ASPIRIN EC 81 MG TABLET PO SCH (08:37)
[2018-10-20] MEDS: LISINOPRIL 20 MG TABLET PO SCH ×2 (08:38→20:36)
[2018-10-20] MEDS: Tolterodine LA Cap 4 MG CAP PO SCH (08:38)
--- NOTE | 2018-10-20 10:57 | PTI REPORT ---
Thank you for the referral of Gianfranco Bear. He was seen on 10/17/18 for an inpatient evaluation secondary to weakness. SUBJECTIVE: The patient is an 88-year-old male who states he [place] here [place] town on [address]. He states he had to get up to go to the restroom and his legs wouldn't hold him up, and he fell. The patient states he was doing great yesterday and then this came very suddenly. PAST MEDICAL HISTORY: Past medical history can be found in the patient's medical record. OBJECTIVE FINDINGS: General observations: The patient was very anxious and apprehensive about getting up and getting out of bed. Pain: The patient complaints of no pain in his back or his knees. Range of motion: The patient demonstrates good range of motion in his upper and lower extremities. Bed mobility: The patient was able to come from supine to sit with minimal assist and tactile cueing. Transfers: The patient was able to come to a standing position with minimal assist of two. Ambulation: The patient was able to take 2-3 steps forward, but once he realized he was walking he became very anxious and wanted to get back to bed very quickly. ASSESSMENT: They are doing some further testing to see if they can find any causative factors for this current issue. He states he was doing great yesterday and then this came very suddenly. The therapist does think the patient possesses the ability to ambulate with a walker. The therapist thinks there is a lot of anxiety from his recent fall and maybe some other medical issue causing this trouble that they are going to look into. Problem List: Patient is a HIGH risk for falling at this point due to his impulsiveness, non predictable behavior, and anxiety Short-Term Goals: To be met by discharge from inpatient: Patient will be able to transfer from bed to stand independently. Patient will be able to ambulate 300 feet with least restrictive assistive device. Patient will demonstrate good balance. Long-Term Goals: To be met following discharge from inpatient: Patient will return home per prior level of function safely and independently. TREATMENT PLAN: Patient will be seen B.I.D during the week and one time per day over the weekend as an inpatient for lower extremity strengthening, transfers, and ambulatory activities. INITIAL TREATMENT: Treatment today consisted of the initial evaluation activities only. EVON
--- NOTE | 2018-10-20 11:52 | DI ---
MRI Lumbar Spine WO Contrast,10/20/2018 7:00 AM: Clinical History: Leg weakness and history of back surgery and spinal stenosis Previous Exam: July 03, 2010 Findings: Multiplanar MR images are obtained through the lumbar spine without contrast, and demonstrate mild le voscoliosis of the mid lumbar spine. Postsurgical changes are seen consistent with transpedicular fixation of L3-L5. There is also interbo dy fusion of L2/3, L3/4 and L4/5. There is loss of intervertebral disc height at multiple levels with broad-based disc bulges and facet hypertrophy. The spinal cord descends normally with normal course, caliber and a normal conus at the L1 level. There is a large right renal cyst measuring 6.1 cm in length. Individual intervertebral disc spaces. L1/2: There is disc desiccation, a broad-based disc bulge and annular fissuring combining with facet and ligamentum flavum hypertrophy to cause mild central canal stenosis with mild right and moderate l eft neuroforaminal narrowing. L2/3: There is a 4 mm of retrolisthesis of L2 on L3 and complete loss of intervertebral disc height w ith some facet and ligamentum flavum hypertrophy contributing to severe right, severe left neural for aminal narrowing, and severe central canal stenosis. L3/4: There is transpedicular fusion at this level and bilateral laminectomies causing decompression of the central canal. There is severe right and moderate left neural foraminal narrowing. L4/5: There is 2 mm of anterolisthesis of L4 on L5 with disc desiccation and annular fissuring. There is some facet hypertrophy. Bilateral laminectomies are noted. There is mild central canal stenosis w ith mild left and moderate right neuroforaminal narrowing. L5/S1: There is disc desiccation and a broad-based disc bulge with some facet and ligamentum flavum h ypertrophy contributing to mild bilateral neural foraminal narrowing. Impression: L1/2: There is disc desiccation, a broad-based disc bulge and annular fissuring combining with facet and ligamentum flavum hypertrophy to cause mild central canal stenosis with mild right and moderate l eft neuroforaminal narrowing. L2/3: There is a 4 mm of retrolisthesis of L2 on L3 and complete loss of intervertebral disc height w ith some facet and ligamentum flavum hypertrophy contributing to severe right, severe left neural for aminal narrowing, and severe central canal stenosis. L3/4: There is transpedicular fusion at this level and bilateral laminectomies causing decompression of the central canal. There is severe right and moderate left neural foraminal narrowing. L4/5: There is 2 mm of anterolisthesis of L4 on L5 with disc desiccation and annular fissuring. There is some facet hypertrophy. Bilateral laminectomies are noted. There is mild central canal stenosis w ith mild left and moderate right neuroforaminal narrowing. L5/S1: There is disc desiccation and a broad-based disc bulge with some facet and ligamentum flavum h ypertrophy contributing to mild bilateral neural foraminal narrowing.
--- NOTE | 2018-10-20 12:27 | PT.PROG ---
Progress Note Progress Note: S. Patient agreed to go to the therapy gym this morning. O. Patient ambulated 175 feet to the therapy gym then ambulated 70 feet to the wheelchair and was returned to his room where he was left with alarm and call light. A. Patient complained of cramping after ambulation, he would continue to benefit from skilled therapy to increase strength and safety at this time. P. Continue POC.
--- NOTE | 2018-10-20 13:32 | PDOC(PROG) ---
Date of Service: 10/20/18 Time of Service: 13:27 Interval History: Patient seen and evaluated earlier this morning. Spoke with stepdaughter, who is the patient's power of divorce attorney. She details that she cannot take care of the patient. She just had surgery herself, is nearing age 64, and is having significant difficulty picking the patient up and lifting him, and it sounds as if he falls frequently, he is not oriented and cannot make any medical decisions for himself. Other siblings are not involved in the patient's care at all. At this point, aside from jail facility, there is no safe discharge options. The patient has not shown aggressive or agitated behavior in the setting of his dementia. Objective : Data - Labs CBC and BMP: 10/18/18 04:50 10/18/18 04:50 - Imaging MRI Status: Report Reviewed by Me (Lumbar spine MRI scan shows neuroforaminal stenosis and central canal stenosis at multiple levels.) Objective : Exam - General General Appearance: No Acute Distress, Cooperative Additional General Exam Details: Vital Signs - Last Taken Temperature 97.3 F 10/20/18 11:09 Pulse Rate 76 10/20/18 11:09 Respiratory Rate 17 10/20/18 11:09 Blood Pressure 99/46 10/20/18 11:09 Pulse Ox 92 10/20/18 11:09 - Eye Eye Exam: No Scleral Icterus - ENT ENT Exam: Mucous Membranes Moist - Neck Neck Exam: JVP is not Raised - Respiratory Respiratory Exam: Clear to Auscultation - Bilaterally, Breathing Non Labored - Cardiovascular Cardiovascular Exam: RRR, No Murmur, No Clicks, No Gallops, No Rubs, No JVD - GI/Abdominal GI/Abdominal Exam: Normal Bowel Sounds, Non Tender, Non Distended, Soft - Extremities Extremities Exam: No Clubbing Present, No Edema Present, No Cyanosis Present - Neurological Neurological Exam: Alert, No Facial Droop, Speech Intact / Clear, Moves All Extremities Equally Additional Neurological Exam Details: Oriented to person Assessment and Plan - Patient Problems (1) Lumbar spinal stenosis Current Visit: Yes Status: Acute Code(s): M48.061 - Spinal stenosis, lumbar region without neurogenic claudication Qualifiers: Neurogenic claudication status: unspecified Qualified Code(s): M48.061 - Spinal stenosis, lumbar region without neurogenic claudication (2) Lower extremity weakness Current Visit: Yes Status: Acute Code(s): R29.898 - Other symptoms and signs involving the musculoskeletal system Qualifiers: Laterality: bilateral Qualified Code(s): R29.898 - Other symptoms and signs involving the musculoskeletal system (3) BPH (benign prostatic hyperplasia) Current Visit: Yes Status: Chronic Onset Date: 10/19/11 Code(s): N40.0 - Benign prostatic hyperplasia without lower urinary tract symptoms Qualifiers: Lower urinary tract symptom presence: unspecified whether lower urinary tract symptoms present Qualified Code(s): N40.0 - Benign prostatic hyperplasia without lower urinary tract symptoms (4) HTN (hypertension) Current Visit: Yes Status: Chronic Onset Date: 10/19/11 Code(s): I10 - Essential (primary) hypertension Qualifiers: Hypertension type: unspecified Qualified Code(s): I10 - Essential (primary) hypertension (5) Dementia Current Visit: Yes Status: Acute Code(s): F03.90 - Unspecified dementia without behavioral disturbance Qualifiers: Dementia type: Alzheimer's disease Alzheimer's disease onset: late-onset Dementia behavioral disturbance: without behavioral disturbance Qualified Code(s): G30.1 - Alzheimer's disease with late onset; F02.80 - Dementia in other diseases classified elsewhere without behavioral disturbance - Assessment / Plan Additional Assessment/Plan Details: MRI does confirm what I felt clinically was likely the case. The patient has fairly severe central spinal canal stenosis and the lumbar spine at some levels that are likely causing leg weakness. This is somewhat similar to the neuro- claudication. I do not think the patient would be a good candidate for medications given his dementia and age. Several central side effects could make this much worse and he is not complaining of pain at this point. However, I expect that he will have progressive lower extremity weakness and inability to walk as time goes on. In terms of his dementia, he is really not in a point where he can make medical decisions. He does not have medical capacity as he is not oriented to place, time, or situation. There is no safe discharge option and discussion with the patient's daughter. She cannot physically take care of the patient, and there is no one else to do that work. She is working with case management to help the patient in terms of financial/insurance coverage issues and desires basement in jail facility. She cannot safely take him home. At this time, there is no acute medical indication for inpatient stay. Again, however, from a social perspective the patient is not safe to discharge.
--- NOTE | 2018-10-20 17:03 | PT.PROG ---
Progress Note Progress Note: S. Patient agreed to go to the therapy gym. O. Patient ambulated 175 feet to the therapy gym, where he used the nu-step x 5 minutes, then performed seated long arc quads, marches, heel toe raises, ball squeezes, clam shells, resisted knee flexion, Patient was left with OT for further therapy. A. Patient tolerated therapy fair, he continues to struggle with weakness, and becomes very confused and requires frequent verbal cues to stay on task. Patient would continue to benefit from skilled therapy to benefit from skilled therapy to increase strength, endurance and safety. P. Continue POC.
[2018-10-21] MEDS: LEVOTHYROXINE 125 MCG TABLET PO SCH (05:52)
[2018-10-21] MEDS: ASPIRIN EC 81 MG TABLET PO SCH (08:14)
[2018-10-21] MEDS: AmLODIPine Tab 5 MG TABLET PO SCH (08:14)
[2018-10-21] MEDS: Tolterodine LA Cap 4 MG CAP PO SCH (08:14)
[2018-10-21] MEDS: LISINOPRIL 20 MG TABLET PO SCH ×2 (08:14→20:38)
--- NOTE | 2018-10-21 10:58 | PDOC(PROG) ---
Date of Service: 10/21/18 Time of Service: 10:55 Interval History: no chest pain, SOB, or N/V denies leg weakness or back pain today Objective : Data - Labs CBC and BMP: 10/18/18 04:50 10/18/18 04:50 Objective : Exam - General General Appearance: No Acute Distress, Cooperative Additional General Exam Details: Vital Signs - Last Taken Temperature 97.2 F 10/21/18 07:10 Pulse Rate 82 10/21/18 07:10 Respiratory Rate 16 10/21/18 07:10 Blood Pressure 129/65 10/21/18 08:14 Pulse Ox 94 10/21/18 07:10 - Head Head Exam: Normal Inspection, Normocephalic, Atraumatic - Neck Neck Exam: JVP is not Raised - Respiratory Respiratory Exam: Clear to Auscultation - Bilaterally, Breathing Non Labored - Cardiovascular Cardiovascular Exam: RRR, No Murmur, No Clicks, No Gallops, No Rubs, No JVD Assessment and Plan - Patient Problems (1) Lumbar spinal stenosis Current Visit: Yes Status: Acute Code(s): M48.061 - Spinal stenosis, lumbar region without neurogenic claudication Qualifiers: Neurogenic claudication status: unspecified Qualified Code(s): M48.061 - Spinal stenosis, lumbar region without neurogenic claudication (2) Lower extremity weakness Current Visit: Yes Status: Acute Code(s): R29.898 - Other symptoms and signs involving the musculoskeletal system Qualifiers: Laterality: bilateral Qualified Code(s): R29.898 - Other symptoms and signs involving the musculoskeletal system (3) BPH (benign prostatic hyperplasia) Current Visit: Yes Status: Chronic Onset Date: 10/19/11 Code(s): N40.0 - Benign prostatic hyperplasia without lower urinary tract symptoms Qualifiers: Lower urinary tract symptom presence: unspecified whether lower urinary tract symptoms present Qualified Code(s): N40.0 - Benign prostatic hyperplasia without lower urinary tract symptoms (4) HTN (hypertension) Current Visit: Yes Status: Chronic Onset Date: 10/19/11 Code(s): I10 - Essential (primary) hypertension Qualifiers: Hypertension type: unspecified Qualified Code(s): I10 - Essential (primary) hypertension (5) Dementia Current Visit: Yes Status: Acute Code(s): F03.90 - Unspecified dementia without behavioral disturbance Qualifiers: Dementia type: Alzheimer's disease Alzheimer's disease onset: late-onset Dementia behavioral disturbance: without behavioral disturbance Qualified Code(s): G30.1 - Alzheimer's disease with late onset; F02.80 - Dementia in other diseases classified elsewhere without behavioral disturbance - Assessment / Plan Additional Assessment/Plan Details: continue PT and OT had very good discussion with step-daughter, ELHAM, yesterday. She cannot take care of patient at home and has had recent surgery herself. placement. SNF. the patient is not safe with advanced dementia to return home and is not oriented enough, in my opinion, to do assisted living no agitation. dementia is without behavioral disturbances.
--- NOTE | 2018-10-21 11:56 | PT.PROG ---
Progress Note Progress Note: S. Patient agreed to go to the therapy gym this morning. O. Patient ambulated 175 feet to the therapy gym where he used the nu-step x 5 minutes, then performed seated long arc quads, marches, heel toe raises, ball squeezes, clam shells and resisted knee flexion all x 10 bilaterally with red thera bands. Patient was wheeled back to his room where he was left with alarm and call light. A. Patient tolerated therapy well, he continues to struggle with weakness and balance deficits, he would continue to benefit from skilled therapy to increase strength, endurance and safety at this time. P. Continue POC.
--- NOTE | 2018-10-21 13:25 | OT.PROG ---
Progress Note Progress Note: S: pt has difficulty hearing so any communication difficult. He did report that he has pain in shoulder and knee. O: pt was seen in his room and had just completed toilet transfer. He completed hygiene at sink INd before completing entire transfer downstairs taking one break. He completed 6 min on Ue bike to increase activity tolerance. He then transferred another 30 ft with standard walker to mat table. He completed UE exercises with RTB in all planes to increase his strength to assist with postural transitions. After completing PT, OT returned him to his room. A: pt participated today but doesn't like to walk,although he can complete ambulation very well. His difficulty hearing makes it difficult to even cue him to complete tasks. P: continue per pOC.
[2018-10-22] MEDS: LEVOTHYROXINE 125 MCG TABLET PO SCH (04:36)
[2018-10-22] MEDS: LISINOPRIL 20 MG TABLET PO SCH ×2 (08:31→20:31)
[2018-10-22] MEDS: ASPIRIN EC 81 MG TABLET PO SCH (08:31)
[2018-10-22] MEDS: Tolterodine LA Cap 4 MG CAP PO SCH (08:31)
[2018-10-22] MEDS: AmLODIPine Tab 5 MG TABLET PO SCH (08:32)
--- NOTE | 2018-10-22 10:27 | OT AM DAY ---
Diagnosis : Weakness AM - Occupational Therapy S: The patient reports he is pretty tired today. O: Today we worked on dressing task. The therapist handed the patient his clothes. He needed verbal cues to initiate every step. He was able to dress upper extremities with min assist; he needed orientation to the shirt and which direction to put his arms in. With pants, he was able to bend over and needed min assist to put legs through pant legs. He needed assistance to pull pants to waist with min assist. The patient had a lot of difficulty tying his pajama pants and needed max assist with this. The patient then ambulated with min assist. He is a moderate fall risk. The patient was then wheeled down to therapy where he performed the UBE x5 minutes followed by upper extremity active range of motion exercises. The patient then completed a wheelchair to bed transfer with max assist to get legs in bed. He has difficulty lifting legs to get them into bed. A: The patient would benefit from continued therapy to work on strengthening and overall abilities. P: Continue seeing patient BID during the week and one time per day over the weekend for upper extremity strengthening, ADLs, and overall functional mobility. EVON
--- NOTE | 2018-10-22 10:31 | OT PM DAY ---
Diagnosis : Weakness PM - Occupational Therapy S: Dr. Ly did order a cognitive assessment for the patient. O: The patient was assessed with the Arnav Cognitive Assessment (MoCA) today. Visuospatial/executive: 0/5 Namin/3 Attention: 26 Language: 2/3 Abstraction: 12 Delayed recall: 05 Orientation: 06/22 The patient had a total score of 9/30, which puts him in the SEVERE cognitive impairment level. He reported that the year was 1992. He did not know the month, date, or day of the week. 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 He did say that a watch and ruler were to measure things. He was able to repeat sentences. He was able to repeat 5 digits forward and name animals. He had very poor memory. A: Secondary to the patient's score, it is recommended that he have 24 hour care as he is not processing through tasks very well at this time. P: Continue seeing patient BID during the week and one time per day over the weekend for upper extremity strengthening, ADLs, and overall functional mobility. EVON
--- NOTE | 2018-10-22 10:42 | OTI REPORT ---
Thank you for the referral of Gianfranco Bear. He was seen on 10/17/18 for an occupational therapy inpatient evaluation secondary to weakness. SUBJECTIVE: The patient is an 88-year-old male. The patient is a poor historian. He had difficulty telling the therapist a lot of things. He did state that he lives with his daughter. He does have difficulty performing some tasks at home. He could not remember if he dressed himself or what he did exactly in the home. PAST MEDICAL HISTORY: Past medical history can be found in the patient's medical record. OBJECTIVE FINDINGS: Bed mobility: The patient was able to come from supine to sit with max assist. Range of motion: While sitting edge of bed, upper extremity active range of motion is about 75%. Elbow flexion/extension is within normal limits. Strength: Strength in shoulder flexion is 4/5, abduction is 3+/5, elbow flexion/extension is 4/5, wrist flexion/extension is 4/5. Transfers: The patient requires max assist to come from sit to stand. Endurance: The patient's activity tolerance is pretty poor. He states that he gets fatigued very easily and his legs feel very weak. Activities of daily living: The patient requires max assist to dress lower extremities and mod assist to dress upper extremities with verbal cues. ASSESSMENT: The patient may benefit from further cognitive testing as he did appear slightly confused today. Problem List: Decreased ability to complete functional transfers Decreased ability to complete ADLs Decreased strength Decreased safety awareness Short-Term Goals: To be met by discharge from inpatient: Patient will be able to dress lower and upper extremities with min assist. Patient will increase upper extremity strength to 4+/5 throughout bilaterally. Patient will be able to complete a toilet transfer safely and with stand by assist. Patient will be able to tolerate 10 minutes of a functional stand activity to complete hygiene activities and ADLs. Long-Term Goals: To be met following discharge from inpatient: Patient will return home or possibly to a 24-hour care facility as the patient is demonstrating a need for 24-hour care as of today. TREATMENT PLAN: Patient will be seen B.I.D during the week and one time per day over the weekend as an inpatient to address the above goals and objectives. INITIAL TREATMENT: Treatment today consisted of the initial evaluation activities only. EVON
--- NOTE | 2018-10-22 11:52 | OT.PROG ---
Progress Note Progress Note: S: pt stated that he was doing well and agreed to therapy. O: tx consisted of UE biceps, triceps, around the clocks and chest pulls x20 each. A: pt tolerated session well. pt has a hard time remaining on task today. P: continue POC
--- NOTE | 2018-10-22 13:57 | PDOC(PROG) ---
Date of Service: 10/22/18 Time of Service: 13:54 Interval History: No complaints from the patient today. Spoke with stepdaughter. They will meet to discuss payment options later today and some sort of meeting and conference. Patient is pleasantly demented. History is not reliable. Objective : Data - Labs CBC and BMP: 10/18/18 04:50 10/18/18 04:50 Objective : Exam - General General Appearance: No Acute Distress, Cooperative Additional General Exam Details: Vital Signs - Last Taken Temperature 97.5 F 10/22/18 11:58 Pulse Rate 91 10/22/18 11:58 Respiratory Rate 18 10/22/18 11:58 Blood Pressure 121/57 10/22/18 11:58 Pulse Ox 95 10/22/18 11:58 - Eye Eye Exam: No Scleral Icterus - ENT ENT Exam: Mucous Membranes Moist - Neck Neck Exam: JVP is not Raised - Respiratory Respiratory Exam: Clear to Auscultation - Bilaterally, Breathing Non Labored - Cardiovascular Cardiovascular Exam: RRR, No Murmur, No Clicks, No Gallops, No Rubs, No JVD - GI/Abdominal GI/Abdominal Exam: Normal Bowel Sounds, Non Tender, Non Distended, Soft - Extremities Extremities Exam: No Clubbing Present, No Edema Present, No Cyanosis Present - Neurological Neurological Exam: Alert, Normal Gait (Reliant on Walker), No Facial Droop, Speech Intact / Clear, Moves All Extremities Equally Assessment and Plan - Patient Problems (1) Lumbar spinal stenosis Current Visit: Yes Status: Acute Code(s): M48.061 - Spinal stenosis, lumbar region without neurogenic claudication Qualifiers: Neurogenic claudication status: unspecified Qualified Code(s): M48.061 - Spinal stenosis, lumbar region without neurogenic claudication (2) Lower extremity weakness Current Visit: Yes Status: Acute Code(s): R29.898 - Other symptoms and signs involving the musculoskeletal system Qualifiers: Laterality: bilateral Qualified Code(s): R29.898 - Other symptoms and signs involving the musculoskeletal system (3) BPH (benign prostatic hyperplasia) Current Visit: Yes Status: Chronic Onset Date: 10/19/11 Code(s): N40.0 - Benign prostatic hyperplasia without lower urinary tract symptoms Qualifiers: Lower urinary tract symptom presence: unspecified whether lower urinary tract symptoms present Qualified Code(s): N40.0 - Benign prostatic hyperplasia without lower urinary tract symptoms (4) HTN (hypertension) Current Visit: Yes Status: Chronic Onset Date: 10/19/11 Code(s): I10 - Essential (primary) hypertension Qualifiers: Hypertension type: unspecified Qualified Code(s): I10 - Essential (primary) hypertension (5) Dementia Current Visit: Yes Status: Acute Code(s): F03.90 - Unspecified dementia without behavioral disturbance Qualifiers: Dementia type: Alzheimer's disease Alzheimer's disease onset: late-onset Dementia behavioral disturbance: without behavioral disturbance Qualified Code(s): G30.1 - Alzheimer's disease with late onset; F02.80 - Dementia in other diseases classified elsewhere without behavioral disturbance - Assessment / Plan Additional Assessment/Plan Details: I spoke with case management, LT 101 pending. It looks like [facility] in [place], [place], might consider accepting the patient. From a medical standpoint, no acute medical issues, but socially, the patient's dementia makes it very unsafe for him to go home. He will not be able to be taken care of by his stepdaughter due to health issues that she is dealing with. Again it is just not safe to send the patient home. His dementia is not agitated. He does not have behavioral disturbances.
--- NOTE | 2018-10-22 16:02 | OT.PROG ---
Progress Note Progress Note: S: Pt reports while transferring that his shoulder is about wore out and his knees about give out while walking. Communicating with pt is difficult due to loss of hearing. O: pt was seen in his room completed sit to stand with mod Ind on the third attempt. He completed toilet transfer with CGa for safety. He did complete toileting and hygiene Ind but needed min cues. He completed entire transfer downstairs to therapy taking one break. He completed 7min on Ue bike to increase activity tolerance. He transferred apprx 15 ft to [facility] where he completed all ranges on 5k-1k with BUE's. He completed x1 more sit to stand with Mod Ind as it took him longer to complete and transferred approx 15 ft to mat table where PT took over treatment. He was returned to his room by OT. He completed bed mobility with min A to supine position in bed. The bed alarm was on and call light within reach and daughter was present. A: pt participated well but does have limitations with LUE with ROM and strength. Although he does not like to ambulate he does well at it, and has never had a near fall during transfers to therapy. To remain safe though, continue with CGA at all times throughout transfers. P: Continue per POC.
--- NOTE | 2018-10-22 16:40 | PT.PROG ---
Progress Note Progress Note: S. Patient agreed to go to the therapy gym this afternoon. O. Patient was brought to the therapy gym by OT then then performed exercises in the form of; seated long arc quads, marches, ball squeezes, clam shells, resisted knee flexion, heel toe raises, all x 10 bilaterally with red thera bands and 2# weights. Patient then performed sit to stands x 5 and box step ups with a #1 box. Patient then ambulated 70 feet to the wheelchair and was wheeled back to his room and was left with call light and alarm. A. Patient tolerated therapy fair, he was able to perform all exercises with no increase in pain or problems. Patient continues to require min assist with transfers and ambulation, He continues to struggle with cognition and requires frequent verbal cues to complete all exercises. he would continue to benefit from skilled therapy to increase strength, endurance, and safety at this time. P. Continue POC.
[2018-10-23] MEDS: LEVOTHYROXINE 125 MCG TABLET PO SCH (04:45)
--- NOTE | 2018-10-23 07:47 | PT.PROG ---
Progress Note Progress Note: S: Pt reported thathe doesn't like therapy. Would prefer to avoid it. Knees are aching on this day. O: Pt amb w/ FWW to restroom and therapy w/ CGA. He performed UBE x8 min. Also performed seated LAQ, marches, clamshells and knee ext w/ red theraband x10 ea. Completed UBE scap retraction, bicep curls, and round the clocks w/ red theraband x 10 ea. A: Pt was unhappy w/ therapy tx. He has significant BUE weakness. Difficulty understanding verbal cues secondary to hearing deficit. Tolerated today's interventions to fatigue. P: Continue w/ interventions per POC for strengthening and endurance.
[2018-10-23] MEDS: ASPIRIN EC 81 MG TABLET PO SCH (09:45)
[2018-10-23] MEDS: Tolterodine LA Cap 4 MG CAP PO SCH (09:45)
[2018-10-23] MEDS: LISINOPRIL 20 MG TABLET PO SCH ×2 (09:45→20:24)
[2018-10-23] MEDS: AmLODIPine Tab 5 MG TABLET PO SCH (09:45)
--- NOTE | 2018-10-23 11:53 | OT.PROG ---
Progress Note Progress Note: S: pt stated he had already had breakfast. Communication with pt is difficult secondary to decrease hearing. He did report his knees are about to give out during transfers & his shoulder hurts. O: pt was seen in his room in chair. He completed sit to stand Ind on 2nd attempt as he declines to push up from arm rest. He completed entire transfer downstairs with no breaks. He completed 5 min on arm bike to increase activity tolerance. He then transferred mat table where he completed UE exercises with RTb in all planes to increase strength to assist with postural transitions. OT returned him to his room and left upright in chair with call light within reach and alarm on. A: pt does ambulate well, although he does not like to and would rather use w/c for most of them. Continue to progress as he can tolerate. P: continue per POC.
--- NOTE | 2018-10-23 11:55 | PT.PROG ---
Progress Note Progress Note: S. Patient agreed to go to the therapy gym. O. Patient was brought to the therapy gym by OT then performed seated exercises in the form of; long arc quads, marches, heel toe raises all x 10 bilaterally with 2# weights, box step ups with #1 box 2x5. Patient used the nu-step x 5 minutes then ambulated 60 feet to the wheelchair and was wheeled back to his room where he was left in his chair with alarm and call light. A. Patient tolerated therapy well, he continues to struggle with balance and weakness, he would continue to benefit from skilled therapy to increase strength, endurance and safety at this time. P. Continue POC.
--- NOTE | 2018-10-23 13:14 | PDOC(PROG) ---
Date of Service: 10/23/18 Time of Service: 12:00 Interval History: Subjective Patient was sitting in the chair, does not appear in distress. Denying symptoms. He has dementia, he cannot tell me the exact reason he is been in the hospital for. He said that his knees were hurting. However on talking to the nursing staff apparently he is getting up and walking using a walker and does not appear or complain from pain. Objective : Data - Labs CBC and BMP: 10/18/18 04:50 10/18/18 04:50 Assessment and Plan - Patient Problems (1) HTN (hypertension) Current Visit: Yes Status: Chronic Onset Date: 10/19/11 Comment: Same medications Code(s): I10 - Essential (primary) hypertension Qualifiers: Hypertension type: unspecified Qualified Code(s): I10 - Essential (primary) hypertension (2) Dementia Current Visit: Yes Status: Acute Comment: Waiting for placement probably next week to [facility] in [place]. Code(s): F03.90 - Unspecified dementia without behavioral disturbance Qualifiers: Dementia type: Alzheimer's disease Alzheimer's disease onset: late-onset Dementia behavioral disturbance: without behavioral disturbance Qualified Code(s): G30.1 - Alzheimer's disease with late onset; F02.80 - Dementia in other diseases classified elsewhere without behavioral disturbance (3) Hypothyroidism, unspecified Current Visit: No Status: Acute Onset Date: 10/19/11 Comment: Same medications Code(s): E03.9 - Hypothyroidism, unspecified
--- NOTE | 2018-10-23 16:12 | OT.PROG ---
Progress Note Progress Note: S: pt did not want to go to therapy at first but decided it would be "ok". He did not talk much as communication is difficult secondary to loss of hearing. O: pt was transferred down to therapy by PT. He completed Ue exercises with RTB in all planes RUE and only bicep flex, rows with LUE due to pain in LUE. He was returned to his room by PT. A: pt participated about as well as he could. He still does not like to ambulate although he is very capable of doing so. P: continue per POC.
--- NOTE | 2018-10-23 16:27 | PT.PROG ---
Progress Note Progress Note: S. Patient agreed to go to the therapy gym this afternoon. O. Patient ambulated 175 feet to the therapy gym then then performed exercises in the form of; seated long arc quads, marches, ball squeezes, clam shells, resisted knee flexion, heel toe raises, all x 10 bilaterally with red thera bands and 2# weights and sit to stands x 5. Patient was wheeled back to his room and was left with call light and alarm. A. Patient tolerated therapy fair, he was able to perform all exercises with no increase in pain or problems. Patient continues to require min assist with transfers and ambulation, He continues to struggle with cognition and requires frequent verbal cues to complete all exercises. he would continue to benefit from skilled therapy to increase strength, endurance, and safety at this time. P. Continue POC.
[2018-10-24] MEDS: LEVOTHYROXINE 125 MCG TABLET PO SCH (05:26)
[2018-10-24] MEDS: ASPIRIN EC 81 MG TABLET PO SCH (08:25)
[2018-10-24] MEDS: AmLODIPine Tab 5 MG TABLET PO SCH (08:25)
[2018-10-24] MEDS: LISINOPRIL 20 MG TABLET PO SCH ×2 (08:25→20:27)
[2018-10-24] MEDS: Tolterodine LA Cap 4 MG CAP PO SCH (08:25)
--- NOTE | 2018-10-24 10:21 | PT.PROG ---
Progress Note Progress Note: S: Pt agreed to complete physical therapy on this day. He contiues to c/o BLE knee pain w/ amb. O: Pt ambulated to and from therapy w/ FWW and CGA w/ 1 seated rest break. Completed UBE x 10', BLE knee ext, marches, and hip ER w/ 2# wt 2x10; knee flex and clamshells w/ red theraband 2x10; BUE scap retraction, bicep curls, and rows w/ red theraband 2x10. A: Pt was more compliant w/ exercise. He has fair BUE strength. BLE weakness persists w/ WB activities. He tolerated today's interventions w/o any adverse affects. P: Continue w/ interventions per POC.
--- NOTE | 2018-10-24 11:18 | PDOC(PROG) ---
Date of Service: 10/24/18 Time of Service: 11:20 Interval History: Subjective Patient is denying symptoms he was laying in bed. he Does not appear in distress. Objective : Data - Labs CBC and BMP: 10/18/18 04:50 10/18/18 04:50 Objective : Exam - General General Appearance: No Acute Distress, Cooperative - Head Head Exam: Normal Inspection - Eye Eye Exam: Normal Appearance - ENT ENT Exam: Normal Exam - Neck Neck Exam: Normal Inspection - Respiratory Respiratory Exam: Clear to Auscultation - Bilaterally - Cardiovascular Cardiovascular Exam: RRR - GI/Abdominal GI/Abdominal Exam: Normal Bowel Sounds, Non Tender, Non Distended, Soft, No Organomegaly - Rectal Rectal Exam: Deferred - External Exam: Deferred Exam: Deferred - Extremities Extremities Exam: Normal Inspection - Back Back Exam: Normal Inspection - Neurological Additional Neurological Exam Details: Patient has underlying dementia. No focal deficits though. - Psychiatric Psychiatric Exam: Normal Affect Assessment and Plan - Patient Problems (1) HTN (hypertension) Current Visit: Yes Status: Chronic Onset Date: 10/19/11 Comment: Same medication Code(s): I10 - Essential (primary) hypertension Qualifiers: Hypertension type: unspecified Qualified Code(s): I10 - Essential (primary) hypertension (2) Dementia Current Visit: Yes Status: Acute Comment: he is waiting for placement maybe next week. Code(s): F03.90 - Unspecified dementia without behavioral disturbance Qualifiers: Dementia type: Alzheimer's disease Alzheimer's disease onset: late-onset Dementia behavioral disturbance: without behavioral disturbance Qualified Code(s): G30.1 - Alzheimer's disease with late onset; F02.80 - Dementia in other diseases classified elsewhere without behavioral disturbance (3) Hypothyroidism, unspecified Current Visit: No Status: Acute Onset Date: 10/19/11 Comment: Same medication Code(s): E03.9 - Hypothyroidism, unspecified
--- NOTE | 2018-10-24 16:01 | OT.PROG ---
Progress Note Progress Note: S: pt reports that his knees feel like they are going to give out. O: pt was transferred down to therapy by PT. Pt completed UE exercises with 2# dumb baca in bicep flex,and shoulder press x10 and all other exercises completed with RTB in all planes. Pt was then returned to his room by PT. A: pt participated well and although he complains of LE/knee weakness he transfers well. Communication is difficult due to hearing loss. P: continue per POC.
--- NOTE | 2018-10-24 17:03 | OT.PROG ---
Progress Note Progress Note: S: pt stated that he wanted to get dressed. O: tx consisted of seated dressing tasks where pt completed UE dressing independently and LE dressing with MIN A, functional ambulation x 15' with FWW and CGA for safety, toilet transfer with MIN A, toileting tasks and hygiene independently, functional transfer to recliner with MIN A for balance. A: pt tolerated session well. P: continue POC
[2018-10-25] MEDS: LEVOTHYROXINE 125 MCG TABLET PO SCH (06:35)
[2018-10-25] MEDS: LISINOPRIL 20 MG TABLET PO SCH ×2 (09:13→20:31)
[2018-10-25] MEDS: Tolterodine LA Cap 4 MG CAP PO SCH (09:13)
[2018-10-25] MEDS: ASPIRIN EC 81 MG TABLET PO SCH (09:13)
[2018-10-25] MEDS: AmLODIPine Tab 5 MG TABLET PO SCH (09:13)
--- NOTE | 2018-10-25 10:15 | PDOC(PROG) ---
Date of Service: 10/25/18 Time of Service: 10:15 Interval History: Subjective Patient was sitting in chair having his breakfast denying complaint. However he has dementia. Objective : Data - Labs CBC and BMP: 10/18/18 04:50 10/18/18 04:50 Objective : Exam - General General Appearance: No Acute Distress, Cooperative - Head Head Exam: Normal Inspection - Eye Eye Exam: Normal Appearance - ENT ENT Exam: Normal Exam - Neck Neck Exam: Normal Inspection - Respiratory Respiratory Exam: Clear to Auscultation - Bilaterally - Cardiovascular Cardiovascular Exam: RRR - GI/Abdominal GI/Abdominal Exam: Normal Bowel Sounds, Non Tender, Non Distended, Soft, No Organomegaly - Rectal Rectal Exam: Deferred - External Exam: Deferred - Extremities Extremities Exam: Normal Inspection - Back Back Exam: Normal Inspection - Neurological Neurological Exam: Alert, CN II-XII Intact, No Facial Droop, Speech Intact / C lear, Moves All Extremities Equally - Psychiatric Psychiatric Exam: Normal Affect Assessment and Plan - Patient Problems (1) HTN (hypertension) Current Visit: Yes Status: Chronic Onset Date: 10/19/11 Comment: Continue current medications. Code(s): I10 - Essential (primary) hypertension Qualifiers: Hypertension type: unspecified Qualified Code(s): I10 - Essential (primary) hypertension (2) Dementia Current Visit: Yes Status: Acute Comment: Waiting for placement probably sometime next week Code(s): F03.90 - Unspecified dementia without behavioral disturbance Qualifiers: Dementia type: Alzheimer's disease Alzheimer's disease onset: late-onset Dementia behavioral disturbance: without behavioral disturbance Qualified Code(s): G30.1 - Alzheimer's disease with late onset; F02.80 - Dementia in other diseases classified elsewhere without behavioral disturbance (3) Hypothyroidism, unspecified Current Visit: No Status: Acute Onset Date: 10/19/11 Comment: Same med Code(s): E03.9 - Hypothyroidism, unspecified
[2018-10-26] MEDS: LEVOTHYROXINE 125 MCG TABLET PO SCH (08:43)
[2018-10-26] MEDS: LISINOPRIL 20 MG TABLET PO SCH ×2 (08:43→20:11)
[2018-10-26] MEDS: ASPIRIN EC 81 MG TABLET PO SCH (08:43)
[2018-10-26] MEDS: Tolterodine LA Cap 4 MG CAP PO SCH (08:43)
[2018-10-26] MEDS: AmLODIPine Tab 5 MG TABLET PO SCH (08:43)
--- NOTE | 2018-10-26 11:28 | PDOC(PROG) ---
Date of Service: 10/26/18 Time of Service: 11:00 Interval History: Subjective Patient laying in bed arousable no complaint. Objective : Data - Labs CBC and BMP: 10/18/18 04:50 10/18/18 04:50 Objective : Exam - General General Appearance: No Acute Distress, Cooperative - Head Head Exam: Normal Inspection - Eye Eye Exam: Normal Appearance - ENT ENT Exam: Normal Exam - Neck Neck Exam: Normal Inspection - Respiratory Respiratory Exam: Clear to Auscultation - Bilaterally - Cardiovascular Cardiovascular Exam: RRR - GI/Abdominal GI/Abdominal Exam: Normal Bowel Sounds, Non Tender, Non Distended, Soft, No Organomegaly - Rectal Rectal Exam: Deferred - External Exam: Deferred - Extremities Extremities Exam: Normal Inspection Assessment and Plan - Patient Problems (1) HTN (hypertension) Current Visit: Yes Status: Chronic Onset Date: 10/19/11 Comment: Same med Code(s): I10 - Essential (primary) hypertension Qualifiers: Hypertension type: unspecified Qualified Code(s): I10 - Essential (primary) hypertension (2) Dementia Current Visit: Yes Status: Acute Comment: Waiting for placement probably next week Code(s): F03.90 - Unspecified dementia without behavioral disturbance Qualifiers: Dementia type: Alzheimer's disease Alzheimer's disease onset: late-onset Dementia behavioral disturbance: without behavioral disturbance Qualified Code(s): G30.1 - Alzheimer's disease with late onset; F02.80 - Dementia in other diseases classified elsewhere without behavioral disturbance (3) Hypothyroidism, unspecified Current Visit: No Status: Acute Onset Date: 10/19/11 Comment: Same med Code(s): E03.9 - Hypothyroidism, unspecified
[2018-10-27] MEDS: LEVOTHYROXINE 125 MCG TABLET PO SCH (06:01)
--- NOTE | 2018-10-27 07:29 | PT.PROG ---
Progress Note Progress Note: S: Pt. states he is doing well today. Tired. O: Treatment consisted of functional activities: bed mobility and assisted with dressing. He then ambulated to the therapy room and performed the ube x 4 minutes, sit to stands x 10 and box step ups x 3. He also performed laq, seated marches, pillow squeezes and red theraband in all planes. Pt. was then transported back upstairs to his room via a wheelchair. A: Pt. does require encouragement to participate, however he does well once he gets moving. His balance and endurance are still poor. P: Continue per POC to increase strength and activity tolerance. Roxanna Pearson, PENETRATION TESTER
--- NOTE | 2018-10-27 07:32 | PT.PROG ---
Progress Note Progress Note: S: Pt. states he is doing well today. O: Treatment consisted of functional activities: ambulating down to the therapy room where he performed the ube x 4 minutes, sit to stands x 5, box step ups x 5, laq, seated marches, pillow squeezes and red theraband for UE strengthening into all planes. He was then transported back to his room via wheelchair. A: Pt. continues to make small slight improvements with activity tolerance. P: Continue per POC to increase strength and activity tolerance. Roxanna Pearson, DOCK OPERATIONS SUPERVISOR
--- NOTE | 2018-10-27 07:58 | PDOC(PROG) ---
Date of Service: 10/27/18 Time of Service: 08:00 Interval History: Subjective Patient is sitting in the chair, no complaint does not appear in distress. He has dementia. Objective : Data - Labs CBC and BMP: 10/18/18 04:50 10/18/18 04:50 Objective : Exam - General General Appearance: No Acute Distress, Cooperative - Head Head Exam: Normal Inspection - Eye Eye Exam: Normal Appearance - ENT ENT Exam: Normal Exam - Neck Neck Exam: Normal Inspection - Respiratory Respiratory Exam: Clear to Auscultation - Bilaterally - Cardiovascular Cardiovascular Exam: RRR - GI/Abdominal GI/Abdominal Exam: Normal Bowel Sounds, Non Tender, Non Distended, Soft, No Organomegaly - Rectal Rectal Exam: Deferred - External Exam: Deferred - Extremities Extremities Exam: Normal Inspection - Back Back Exam: Normal Inspection - Neurological Neurological Exam: Alert, CN II-XII Intact, No Facial Droop, Speech Intact / Panchito ar - Psychiatric Psychiatric Exam: Normal Affect Assessment and Plan - Patient Problems (1) HTN (hypertension) Current Visit: Yes Status: Chronic Onset Date: 10/19/11 Comment: Same medications Code(s): I10 - Essential (primary) hypertension Qualifiers: Hypertension type: unspecified Qualified Code(s): I10 - Essential (primary) hypertension (2) Dementia Current Visit: Yes Status: Acute Comment: We're waiting for placement for him. Probably sometime this week. Code(s): F03.90 - Unspecified dementia without behavioral disturbance Qualifiers: Dementia type: Alzheimer's disease Alzheimer's disease onset: late-onset Dementia behavioral disturbance: without behavioral disturbance Qualified Code(s): G30.1 - Alzheimer's disease with late onset; F02.80 - Dementia in other diseases classified elsewhere without behavioral disturbance (3) Hypothyroidism, unspecified Current Visit: No Status: Acute Onset Date: 10/19/11 Comment: Same med Code(s): E03.9 - Hypothyroidism, unspecified
[2018-10-27] MEDS: ASPIRIN EC 81 MG TABLET PO SCH (09:06)
[2018-10-27] MEDS: LISINOPRIL 20 MG TABLET PO SCH ×2 (09:06→20:10)
[2018-10-27] MEDS: Tolterodine LA Cap 4 MG CAP PO SCH (09:06)
[2018-10-27] MEDS: AmLODIPine Tab 5 MG TABLET PO SCH (09:06)
--- NOTE | 2018-10-27 12:13 | OT.PROG ---
Progress Note Progress Note: S: pt stated that he needed to put pants on. O: tx consisted of donning of LE pants with x2 VCs, functional transfer to w/c with use of walker and CGA for safety, UE red RTB exercises in all planes of motion x20 each, UBE x8 min, red digiflex x20 each, power web exercises x15 each. A: pt tolerated session well and is improving in ADL performance. P: continue POC
--- NOTE | 2018-10-27 15:23 | PT.PROG ---
Progress Note Progress Note: S. Patient agreed to go to the therapy gym this Morning. O. Patient was wheeled to the therapy gym then then performed exercises in the form of; seated long arc quads, marches, ball squeezes, clam shells, resisted knee flexion, heel toe raises, all x 10 bilaterally with red thera bands and 2# weights and sit to stands x 5. Patient was wheeled back to his room and was left with call light and alarm. A. Patient tolerated therapy fair, he was able to perform all exercises with no increase in pain or problems. Patient continues to require min assist with transfers and ambulation, He continues to struggle with cognition and requires frequent verbal cues to complete all exercises. he would continue to benefit from skilled therapy to increase strength, endurance, and safety at this time. P. Continue POC.
--- NOTE | 2018-10-27 16:02 | OT.PROG ---
Progress Note Progress Note: S: pt did not communicate much during therapy today due to hearing deficit. He did report that his knees were about to give out during transfers. O: pt participated in Ue bike for 1o min to increase activity tolerance. He then transferred to mat table and completed sitting dynamic balance activity for up to 6 min to maintain motion of UE's. He completed transfer approx 120 ft before taking a break. He sat in chair and finished transfer approx 30 more ft to room. He was left in chair with call light within reach and alarm on. A: pt transfers well and had no nears fall between transitions today. He does not like to ambulate although he is more than capable to do so. P: continue per POC.
[2018-10-28] MEDS: LEVOTHYROXINE 125 MCG TABLET PO SCH (05:46)
[2018-10-28] MEDS: ASPIRIN EC 81 MG TABLET PO SCH (08:34)
[2018-10-28] MEDS: AmLODIPine Tab 5 MG TABLET PO SCH (08:34)
[2018-10-28] MEDS: LISINOPRIL 20 MG TABLET PO SCH ×2 (08:34→20:58)
--- NOTE | 2018-10-28 11:58 | PDOC(PROG) ---
Interval History: Doing well no complaints no chest pain nausea or vomiting Objective : Data - Labs CBC and BMP: 10/18/18 04:50 10/18/18 04:50 Objective : Exam - General General Appearance: No Acute Distress, Cooperative - Respiratory Respiratory Exam: Clear to Auscultation - Bilaterally, Breathing Non Labored, Normal To Percussion, Normal to Percussion and Palpation - Cardiovascular Cardiovascular Exam: RRR, No Murmur, No Clicks, No Gallops, No Rubs, PMI Non- Displaced Assessment and Plan - Patient Problems (1) HTN (hypertension) Current Visit: Yes Status: Chronic Onset Date: 10/19/11 Comment: Stable Code(s): I10 - Essential (primary) hypertension Qualifiers: Hypertension type: unspecified Qualified Code(s): I10 - Essential (primary) hypertension (2) Hypothyroidism, unspecified Current Visit: No Status: Acute Onset Date: 10/19/11 Comment: Stable Code(s): E03.9 - Hypothyroidism, unspecified (3) Dementia Current Visit: Yes Status: Acute Code(s): F03.90 - Unspecified dementia without behavioral disturbance Qualifiers: Dementia type: Alzheimer's disease Alzheimer's disease onset: late-onset Dementia behavioral disturbance: without behavioral disturbance Qualified Code(s): G30.1 - Alzheimer's disease with late onset; F02.80 - Dementia in other diseases classified elsewhere without behavioral disturbance - Assessment / Plan Additional Assessment/Plan Details: Awaiting placement manager social media on the the case for fpc placement
--- NOTE | 2018-10-28 12:00 | PT.PROG ---
Progress Note Progress Note: S. Patient agreed to go to the therapy gym. O. Patient ambulated 175 feet to the therapy gym where he used the nu-step x 10 minutes, then performed seated exercises in the form of; long arc quads, heel toe raises, ball squeezes all x 10 bilaterally, sit to stands x 5 Patient ambulated 90 feet to the wheelchair where he was wheeled back to his room where he was left with alarm and call light. A. Patient tolerated therapy well, he continues to struggle with weakness and fatigues easily, he would continue to benefit from skilled therapy to increase strength, endurance and safety. P. Continue POC.
--- NOTE | 2018-10-28 13:27 | OT.PROG ---
Progress Note Progress Note: S: pt did not report any knee pain today during transfers on way down to therapy but did report it on the way back up. He only verbally communicated that he needed to use restroom. O: pt was seen in his room and completed toilet transfer with CGa for safety. He completed toilet hygiene with CGA for safety and needed vc's to complete hygiene at sink. He completed entire transfer to therapy taking no breaks. He completed 2# dumb baca in bicep flx and shoulder flex x10 with BUE, but limited with LUE. He completed standing reaching activity using L and R Ue. He was returned to his room by OT. A: pt transfers well although he does not like to do so. He completed Le doffing/donning with MIn A which is an improvement. Communicating with his is difficult due to loss of hearing. P: continue per POC.
--- NOTE | 2018-10-28 15:31 | PT.PROG ---
Progress Note Progress Note: S. Patient agreed to go to the therapy gym. O. Patient ambulated 175 feet to the therapy gym where he used the nu-step x 10 minutes, then performed seated long arc quads, heel toe raises, ball squeezes, clam shells all x 10 bilaterally with 2# and red thera bands. Patient ambulated 175 feet back to his room where he was left with alarm and call light. A. Patient tolerated therapy fair, he continues to struggle with weakness and fatigues quickly, Patient would continue to benefit from skilled therapy to incr ease strength, endurance and safety. P. Continue POC.
--- NOTE | 2018-10-28 15:35 | OT.PROG ---
Progress Note Progress Note: S: pt did not report any pain/discomfort in his knees today during transfers. O: pt was seen after completing shower with his daughter. He completed transfer entire way to therapy with no breaks. He completed Ue exercises with GTB in all planes with LUE completed below 90 degs. He also completed standing/sitting dynamic balance activity with balloon. He was returned to his room by OT and left upright in chair with alarm on and call light within reach. A: pt participates well and demonstrated ability to transfer a good distance with no knee pain or loss of balance. He is limited with his overall function of LUE. P: continue per pOC.
[2018-10-29] MEDS: LEVOTHYROXINE 125 MCG TABLET PO SCH (05:50)
[2018-10-29] MEDS: LISINOPRIL 20 MG TABLET PO SCH (09:20)
[2018-10-29] MEDS: AmLODIPine Tab 5 MG TABLET PO SCH (09:20)
[2018-10-29] MEDS: ASPIRIN EC 81 MG TABLET PO SCH (09:20)
[2018-10-29 09:24] VITALS: BP 127/64; RESP 20; TEMP 97.6; O2SAT 95
--- NOTE | 2018-10-29 09:56 | DCSUMMARY ---
Hospitalization Summary Hospital Course: Final Discharge Diagnosis: Current Visit Problems Problem Status Onset Code Lower extremity weakness Acute R29.898 Anemia Acute D64.9 Dehydration Resolved E86.0 Dementia Acute F03.90 Lumbar spinal stenosis Acute M48.061 HTN (hypertension) Chronic 10/19/11 I10 BPH (benign prostatic hyperplasia) Chronic 10/19/11 N40.0 Diagnostic Data, Laboratory Data, and Procedures of Signifigance: History and Physical pertinent to Admission: Past Medical History Medical History: Hypertension, hypothyroidism Tobacco Use: Unknown If Ever Smoked Do you dip or chew tobacco: Yes In the Past 12 Months, Have Used or Abuse Any of the Following Substance: None Course of Hospitalization: Is a very nice 88-year-old gentleman who was brought to the emergency room for lower extremity weakness and dehydration. He was admitted to the hospital where he was rehydrated continued to have physical therapy and regained some of the strength but it was determined that he needed 24-hour care and was accepted that to [facility] he will be discharged in stable and improved condition continue home meds. Patient is not in pain, he has not received any Percocet here in the hospital for the last 3 days according to the nurse therefore I believe he does not needed and may use regular Tylenol for pain if needed. his appetite is good and his little hard of hearing but very pleasant On the date of discharge, the patient was examined: Gen.: No acute distress, alert, nontoxic Heart: Regular rate and rhythm, no murmurs, clicks, gallops, or rubs Lungs: Clear to auscultation bilaterally, breathing is nonlabored Abdomen/GI: Normal tones on auscultation, soft, nontender, nondistended Musculoskeletal/extremities: No clubbing, cyanosis, or edema Vitals reviewed and are listed below Vital Signs (24 hrs) 10/28/18 11:30 10/28/18 16:28 10/28/18 19:12 Temperature 97 F 97.9 F 97.1 F Pulse Rate Pulse Oximeter Right 80 88 97 Respiratory Rate 17 17 18 Blood Pressure Left Arm 109/60 104/46 111/57 Blood Pressure Right Arm Pulse Ox 93 94 92 10/28/18 23:31 10/29/18 03:47 10/29/18 09:00 Temperature 98.4 F 98.5 F 97.6 F Pulse Rate Pulse Oximeter Right 86 81 92 Respiratory Rate 20 21 20 Blood Pressure Left Arm Blood Pressure Right Arm 137/69 126/57 127/64 Pulse Ox 96 96 95 Assessment and Plan: 1. As per discharge assessments above 2. Disposition: [facility] 3. Condition on discharge, stable and improved. 4. Diet: regular diet 5. Activities: resume normal activities 6. Follow-Up: 1. PCP 2. 7. Medications at the Time of Discharge: Home Medications Medication Instructions Recorded Confirmed Aspirin 81 mg PO DAILY #30 05/03/10 10/17/18 pravastatin 40 mg tablet 40 mg PO QHS #30 tab 12/27/17 10/17/18 lisinopril 20 mg tablet 20 mg PO BID #180 tab 01/13/18 10/17/18 tolterodine 1 mg tablet 1 mg PO BID #60 tab 07/07/18 10/17/18 hydrocodone 5 mg-acetaminophen 325 1 tab PO BID PRN #60 tab 08/08/18 10/17/18 mg tablet levothyroxine 125 mcg tablet 125 mcg PO QD #90 tab 09/17/18 10/17/18 amlodipine 5 mg tablet 5 mg PO QD #90 tab 10/14/18 10/17/18 Potassium Chloride 10 meq PO DAILY 10/20/18 10/20/18 8. Time, care, counseling and coordination of care for this discharge is greater than 30 minutes. Exam - Vitals Vital Signs: Vital Signs Temperature 97.6 F Temperature Source Temporal Artery Scan Pulse Rate [Apical] 90 Pulse Rate [Pulse Oximeter 92 Right] Pulse Rate 93 Respiratory Rate 20 Blood Pressure [Right Arm] 127/64 Blood Pressure [Left Arm] 111/57 Blood Pressure 149/85 Pulse Ox 95 Oxygen Delivery Method Room Air Height 5 ft 5 in Weight 188 lb Patient Problems - Patient Problem List (1) HTN (hypertension) Current Visit: Yes Status: Chronic Onset Date: 10/19/11 Code(s): I10 - Essential (primary) hypertension Qualifiers: Hypertension type: unspecified Qualified Code(s): I10 - Essential (primary) hypertension Category: Medical (2) Hypothyroidism, unspecified Current Visit: No Status: Acute Onset Date: 10/19/11 Code(s): E03.9 - Hypothyroidism, unspecified Category: Medical (3) Dementia Current Visit: Yes Status: Acute Code(s): F03.90 - Unspecified dementia without behavioral disturbance Qualifiers: Dementia type: Alzheimer's disease Alzheimer's disease onset: late-onset Dementia behavioral disturbance: without behavioral disturbance Qualified Code(s): G30.1 - Alzheimer's disease with late onset; F02.80 - Dementia in other diseases classified elsewhere without behavioral disturbance Category: Medical
--- NOTE | 2018-10-29 10:53 | OT.PROG ---
Progress Note Progress Note: S: pt stated that he needed to use the bathroom. O: tx consisted of functional transfer with FWW and CGA for safety to toilet x 15', doffing of LE pants independently, x1 VC for safety with transfer onto toilet, completion of toileting tasks and hygiene independently, functional ambulation with CGA and FWW x150'. pt stated that he thought his knees were about to give out and tx session was ended. A: pt is leaving today to [facility]. P: continue POC to d/c
--- NOTE | 2018-10-29 16:04 | PT.PROG ---
Progress Note Progress Note: S: Pt. states he is doing ok. O: Treatment consisted of functional activities: bed mobility, ambulated to and from his room with use of FWW, nu step x 5 minutes, ube x 5 minutes, sit to stands x 10. Pt. was left OT. A: Pt. continues to improve with activity tolerance and balance. He was more willing to participate today. P: Continue per POC to increase strength and activity tolerance. Roxanna Williamson PTA Addendum entered and electronically signed by Roxanna Williamson PTA 10/29/18 16:04: Note was for Saturday10/27/18 in the PM
== END 2018-10-29 11:35 ==
LOC: ER 08:38 → MED/SURG 08:38
PROVIDERS: ADMIT Internal Medicine; ATTEND Internal Medicine